=== PATIENT | female | born 1980 | race Two or more races ===

== ENCOUNTER 2017-06-13 04:57 | Emergency (ER) | payer BC ==
[2017-06-13] MEDS ORDERED: Alum Hydrox/Mag Hydrox/Simeth 15 ML, Metoclopramide 5 MG, Lidocaine 2% 5 ML PO ONE ×3 (05:07)
[2017-06-13] MEDS ORDERED: Pantoprazole 40 MG Vial IVPUSH ONE (05:16)
[2017-06-13] MEDS ORDERED: Ondansetron 4 MG/2 ML SDV IVPUSH ONE (05:16)
--- NOTE | 2017-06-13 05:26 | EDM.PDOC ---
ED HPI GENERAL MEDICAL PROBLEM - General Chief Complaint: Chest Pain Stated Complaint: CHEST PAINS Time Seen by Provider: 06/13/17 05:24 - History of Present Illness INITIAL COMMENTS - FREE TEXT/NARRATIVE: HISTORY AND PHYSICAL: History of present illness: Patient is a 36-year-old female who presents with a concern chest pain she states she is recently prescribed Voltaren for back pain she had no melena no hematochezia she's had some mild nausea on arrival here she denies diaphoresis or palpitations or other concern. Review of systems: As per history of present illness and below otherwise all systems reviewed and negative. Past medical history: As per history of present illness and as reviewed below otherwise noncontributory. Surgical history: As per history of present illness and as reviewed below otherwise noncontributory. Social history: No reported history of drug or alcohol abuse. Family history: As per history of present illness and as reviewed below otherwise noncontributory. Physical exam: HEENT: Atraumatic, normocephalic, pupils reactive, negative for conjunctival pallor or scleral icterus, mucous membranes moist, throat clear, neck supple, nontender, trachea midline. Lungs: Clear to auscultation, breath sounds equal bilaterally, chest nontender. Heart: S1S2, regular, negative for clicks, rubs, or JVD. Abdomen: Soft, nondistended, nontender. Negative for masses or hepatosplenomegaly. Negative for costovertebral tenderness. Pelvis: Stable nontender. Genitourinary: Deferred. Rectal: Deferred. Extremities: Atraumatic, negative for cords or calf pain. Neurovascular unremarkable. Neuro: Awake, alert, oriented. Cranial nerves II through XII unremarkable. Cerebellum unremarkable. Motor and sensory unremarkable throughout. Exam nonfocal. Diagnostics: CBC CMP troponin PT/INR chest x-ray EKG Therapeutics: GI cocktail Zofran 4 mg IV Protonix 80 mg IV Impression: #1 chest pain #2 rule out drug reaction Definitive disposition and diagnosis as appropriate pending reevaluation and review of above. 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: Musculoskeletal History: Reports: Back Pain, Chronic - Past Surgical History Female Surgical History: Reports: Section Social & Family History - Tobacco Use Smoking Status *Q: Former Smoker Used Tobacco, but Quit: Yes Month/Year Tobacco Last Used: 06/13 - Caffeine Use Caffeine Use: Reports: Coffee, Energy Drinks, Soda, Tea - Alcohol Use Days Per Week of Alcohol Use: 7 Number of Drinks Per Day: 5 Total Drinks Per Week: 35 - Recreational Drug Use Recreational Drug Use: Yes Drug Use in Last 12 Months: No ED ROS GENERAL - Review of Systems Review Of Systems: ROS reveals no pertinent complaints other than HPI. ED EXAM, GENERAL - Physical Exam Exam: See Below (dictation) Course - Vital Signs Last Recorded V/S: Last Vital Signs Temp Pulse 57 L 06/13/17 06:06 Resp 18 06/13/17 05:52 BP 116/72 06/13/17 06:06 Pulse Ox 96 06/13/17 05:52 - Orders/Labs/Meds Orders: Active Orders 24 hr Category Date Time Status Chest 1V Frontal [CR] Stat Exams 06/13/17 05:06 Taken Labs: Laboratory Tests 06/13/17 06/13/17 06/13/17 Range/Units 05:00 05:00 05:00 WBC 8.05 (4.0-11.0) K/uL RBC 4.88 (4.30-5.90) M/uL Hgb 12.6 (12.0-16.0) g/dL Hct 39.9 (36.0-46.0) % MCV 81.8 (80.0-98.0) fL MCH 25.8 L (27.0-32.0) pg MCHC 31.6 (31.0-37.0) g/dL RDW Std Deviation 45.3 (28.0-62.0) fl RDW Coeff of Huyen 15 (11.0-15.0) % Plt Count 307 (150-400) K/uL MPV 10.20 (7.40-12.00) fL Neut % (Auto) 56.5 (48.0-80.0) % Lymph % (Auto) 31.2 (16.0-40.0) % [place] % (Auto) 9.9 (0.0-15.0) % Eos % (Auto) 1.9 (0.0-7.0) % Baso % (Auto) 0.5 (0.0-1.5) % Neut # (Auto) 4.6 (1.4-5.7) K/uL Lymph # (Auto) 2.5 H (0.6-2.4) K/uL [place] # (Auto) 0.8 (0.0-0.8) K/uL Eos # (Auto) 0.2 (0.0-0.7) K/uL Baso # (Auto) 0.0 (0.0-0.1) K/uL Nucleated RBC % 0.0 /100WBC Nucleated RBCs # 0 K/uL INR 1.08 Sodium 140 (136-145) mmol/L Potassium 3.1 L (3.5-5.1) mmol/L Chloride 105 (98-107) mmol/L Carbon Dioxide 26.3 (21.0-32.0) mmol/L BUN 12 (7.0-18.0) mg/dL Creatinine 1.0 (0.6-1.0) mg/dL Est Cr Clr Drug Dosing 55.39 mL/min Estimated GFR (MDRD) > 60.0 ml/min Glucose 137 H (74-106) mg/dL Calcium 8.9 (8.5-10.1) mg/dL Total Bilirubin 0.2 (0.2-1.0) mg/dL AST 25 (15-37) IU/L ALT 24 (14-63) IU/L Alkaline Phosphatase 74 (46-116) U/L Troponin I < 0.050 (0.000-0.056) ng/mL Total Protein 7.5 (6.4-8.2) g/dL Albumin 3.8 (3.4-5.0) g/dL Globulin 3.7 H (2.0-3.5) g/dL Albumin/Globulin Ratio 1.0 L (1.3-2.8) Urine Color Urine Appearance Urine pH (5.0-8.0) Ur Specific [place] (1.001-1.035) Urine Protein (NEGATIVE) mg/dL Urine Glucose (UA) (NEGATIVE) mg/dL Urine Ketones (NEGATIVE) mg/dL Urine Occult Blood (NEGATIVE) Urine Nitrite (NEGATIVE) Urine Bilirubin (NEGATIVE) Urine Urobilinogen (<2.0) EU/dL Ur Leukocyte Esterase (NEGATIVE) Urine RBC (0-2/HPF) Urine WBC (0-5/HPF) Ur Epithelial Cells (NONE-FEW) Amorphous Sediment (NEGATIVE) Urine Bacteria (NEGATIVE) 06/13/17 Range/Units 06:10 WBC (4.0-11.0) K/uL RBC (4.30-5.90) M/uL Hgb (12.0-16.0) g/dL Hct (36.0-46.0) % MCV (80.0-98.0) fL MCH (27.0-32.0) pg MCHC (31.0-37.0) g/dL RDW Std Deviation (28.0-62.0) fl RDW Coeff of Huyen (11.0-15.0) % Plt Count (150-400) K/uL MPV (7.40-12.00) fL Neut % (Auto) (48.0-80.0) % Lymph % (Auto) (16.0-40.0) % [place] % (Auto) (0.0-15.0) % Eos % (Auto) (0.0-7.0) % Baso % (Auto) (0.0-1.5) % Neut # (Auto) (1.4-5.7) K/uL Lymph # (Auto) (0.6-2.4) K/uL [place] # (Auto) (0.0-0.8) K/uL Eos # (Auto) (0.0-0.7) K/uL Baso # (Auto) (0.0-0.1) K/uL Nucleated RBC % /100WBC Nucleated RBCs # K/uL INR Sodium (136-145) mmol/L Potassium (3.5-5.1) mmol/L Chloride (98-107) mmol/L Carbon Dioxide (21.0-32.0) mmol/L BUN (7.0-18.0) mg/dL Creatinine (0.6-1.0) mg/dL Est Cr Clr Drug Dosing mL/min Estimated GFR (MDRD) ml/min Glucose (74-106) mg/dL Calcium (8.5-10.1) mg/dL Total Bilirubin (0.2-1.0) mg/dL AST (15-37) IU/L ALT (14-63) IU/L Alkaline Phosphatase (46-116) U/L Troponin I (0.000-0.056) ng/mL Total Protein (6.4-8.2) g/dL Albumin (3.4-5.0) g/dL Globulin (2.0-3.5) g/dL Albumin/Globulin Ratio (1.3-2.8) Urine Color YELLOW Urine Appearance SLT CLOUDY Urine pH 8.5 H (5.0-8.0) Ur Specific [place] 1.010 (1.001-1.035) Urine Protein TRACE (NEGATIVE) mg/dL Urine Glucose (UA) NEGATIVE (NEGATIVE) mg/dL Urine Ketones NEGATIVE (NEGATIVE) mg/dL Urine Occult Blood NEGATIVE (NEGATIVE) Urine Nitrite NEGATIVE (NEGATIVE) Urine Bilirubin NEGATIVE (NEGATIVE) Urine Urobilinogen 1.0 (<2.0) EU/dL Ur Leukocyte Esterase NEGATIVE (NEGATIVE) Urine RBC 0-1 (0-2/HPF) Urine WBC 0-1 (0-5/HPF) Ur Epithelial Cells RARE (NONE-FEW) Amorphous Sediment MODERATE (NEGATIVE) Urine Bacteria RARE (NEGATIVE) Meds: Medications Discontinued Medications Generic Name Dose Route Start Last Admin Trade Name Freq PRN Reason Stop Dose Admin Al Hydroxide/Mg Hydroxide 15 0 ml 06/13/17 05:07 06/13/17 05:15 ml/ Metoclopramide HCl 5 mg/ PO 06/13/17 05:08 1 each Lidocaine HCl 5 ml ONETIME ONE Administration Ondansetron HCl 4 mg 06/13/17 05:16 06/13/17 05:20 Zofran IVPUSH 06/13/17 05:17 4 mg ONETIME ONE Administration Pantoprazole Sodium 80 mg 06/13/17 05:16 06/13/17 05:22 Protonix Iv IVPUSH 06/13/17 05:17 80 mg .BOLUS ONE Administration Departure - Departure Time of Disposition: 06:39 Disposition: Home, Self-Care 01 Condition: Good Clinical Impression: Atypical chest pain - Discharge Information Referrals: PCP,None [Primary Care Provider] - Forms: ED Department Discharge Additional Instructions: The following information is given to patients seen in the emergency department who are being discharged to home. This information is to outline your options for follow-up care. We provide all patients seen in our emergency department with a follow-up referral. The need for follow-up, as well as the timing and circumstances, are variable depending upon the specifics of your emergency department visit. If you don't have a primary care physician on staff, we will provide you with a referral. We always advise you to contact your personal physician following an emergency department visit to inform them of the circumstance of the visit and for follow-up with them and/or the need for any referrals to a consulting specialist. The emergency department will also refer you to a specialist when appropriate. This referral assures that you have the opportunity for followup care with a specialist. All of these measure are taken in an effort to provide you with optimal care, which includes your followup. Under all circumstances we always encourage you to contact your private physician who remains a resource for coordinating your care. When calling for followup care, please make the office aware that this follow-up is from your recent emergency room visit. If for any reason you are refused follow-up, please contact the [facility] emergency department at and asked to speak to the emergency department charge nurse. Stop diclofenac Protonix as prescribed follow-up primary medical doctor return as needed as discussed - My Orders Last 24 Hours: My Active Orders 06/13/17 05:06 Chest 1V Frontal [CR] Stat - Assessment/Plan Last 24 Hours: My Active Orders 06/13/17 05:06 Chest 1V Frontal [CR] Stat
[2017-06-13 05:58] LABS: CHLORIDE,CL 105 mmol/L (98-107); SODIUM,NA 140 mmol/L (136-145)
--- NOTE | 2017-06-14 16:32 | CR ---
EXAM DATE: 06/13/17 PATIENT'S AGE: 36 Patient: CARMEN HYMAN Facility: [place], [place] Site . Site : [id number] Study: XRay Chest [id number]/[id number] 6:01:54 AM Ordering Physician: Doctor Hanson Final Report: Indication: Sudden onset chest pain Technique: Chest 1 view Comparison: None Findings/Impression: Cardiovascular and mediastinum: Heart size and vasculature are normal in caliber and appearance. Mediastinum is within normal limits. Lungs and pleural space: Lungs are clear. No sign of infiltrate or mass. No sign of pleural effusion. No pneumothorax. Bones and soft tissues: No significant findings. Dictated by Laney Tillman MD @ Jun 13 2017 6:29AM (Electronic Signature) Report Signed by Proxy. EDVIN
== END 2017-06-13 06:50 | disposition home or self-care (01) ==
LOC: MW.ED 04:57
DX: R07.89 Other chest pain (principal); J45.909 Unspecified asthma, uncomplicated; Z87.891 Personal history of nicotine dependence; Z79.899 Other long term (current) drug therapy
CPT/HCPCS: 71045; 80053; 81001; 84484; 85025; 85610; 93005; 96374; 96375; 99285; A9270; C9113; J2405; 99283

== ENCOUNTER 2017-06-29 09:44 | Emergency (ER) | payer BC ==
[2017-06-29] MEDS ORDERED: Sodium Chloride 0.9% 10 ML Syringe FLUSH PRN (09:46)
[2017-06-29] MEDS ORDERED: Sodium Chloride 0.9% 2.5 ML Syringe FLUSH PRN (09:46)
--- NOTE | 2017-06-29 09:49 | EDM.PDOC ---
ED HPI GENERAL MEDICAL PROBLEM - General Stated Complaint: CHEST AND BACK PAIN Time Seen by Provider: 06/29/17 09:48 Source of Information: Reports: Patient History Limitations: Reports: No Limitations - History of Present Illness INITIAL COMMENTS - FREE TEXT/NARRATIVE: History of present illness: []Patient wakes up at 3 in the morning for work and awoke with epigastric pain radiating to her chest. Patient was seen for similar episode in the ED and has been worked up by her primary care doctor with no diagnosis. Patient drinks alcohol and not drink any alcohol for 3 days and felt well however last night she did drink. Patient was put on Protonix however she is noncompliant. She denies having any bloody stools vomiting or diarrhea. Review of systems: As per history of present illness and below otherwise all systems reviewed and negative. Past medical history: As per history of present illness and as reviewed below otherwise noncontributory. Surgical history: As per history of present illness and as reviewed below otherwise noncontributory. Social history: No reported history of drug or alcohol abuse. Family history: As per history of present illness and as reviewed below otherwise noncontributory. Physical exam: General: Well developed, well nourished in NAD HEENT: Atraumatic, normocephalic, pupils reactive, negative for conjunctival pallor or scleral icterus, mucous membranes moist, throat clear, neck supple, nontender, trachea midline. Lungs: Clear to auscultation, breath sounds equal bilaterally, chest nontender. Heart: S1S2, regular, negative for clicks, rubs, or JVD. Abdomen: Soft, nondistended, epigastric tenderness to deep palpation. Negative for masses or hepatosplenomegaly. Negative for costovertebral tenderness. Pelvis: Stable nontender. Genitourinary: Deferred. Rectal: Deferred. Extremities: Atraumatic, negative for cords or calf pain. Neurovascular unremarkable. Neuro: Awake, alert, oriented. Cranial nerves II through XII unremarkable. Cerebellum unremarkable. Motor and sensory unremarkable throughout. Exam nonfocal. Diagnostics: []CBC normal, chemistry normal, d-dimer negative, troponin negative, chest x- ray negative Therapeutics: []GI cocktail with minimal relief, IV Pepcid with relief Impression: []GERD Plan: []Continue current prescription for Protonix until gone or start over-the- counter omeprazole twice a day, follow-up with a primary care physician, to not drink anymore alcohol, try to limit use of NSAIDs and if taken take with food return if symptoms worsen or change Definitive disposition and diagnosis as appropriate pending reevaluation and review of above. chest Pain Score (Numeric/FACES): 5 - Related Data Allergies Allergy/AdvReac Type Severity Reaction Status Date / Time No Known Allergies Allergy Verified 06/29/17 10:03 Home Meds: Home Meds . 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: Musculoskeletal History: Reports: Back Pain, Chronic - Past Surgical History Female Surgical History: Reports: Section Social & Family History - Tobacco Use Smoking Status *Q: Former Smoker Used Tobacco, but Quit: Yes Month/Year Tobacco Last Used: 06/13 - Caffeine Use Caffeine Use: Reports: Coffee, Energy Drinks, Soda, Tea - Alcohol Use Days Per Week of Alcohol Use: 7 Number of Drinks Per Day: 5 Total Drinks Per Week: 35 - Recreational Drug Use Recreational Drug Use: Yes Drug Use in Last 12 Months: No ED ROS GENERAL - Review of Systems Review Of Systems: See Below (See history of present illness) ED EXAM, GENERAL - Physical Exam Exam: See Below (See history of present illness) Course - Vital Signs Last Recorded V/S: Last Vital Signs Temp 96.9 F 06/29/17 09:45 Pulse 69 06/29/17 11:09 Resp 18 06/29/17 11:09 BP 104/62 06/29/17 11:09 Pulse Ox 98 06/29/17 11:09 - Orders/Labs/Meds Orders: Active Orders 24 hr Category Date Time Status EKG Documentation Completion [RC] STAT Care 06/29/17 09:46 Active HCG QUALITATIVE,URINE [URCHEM] Stat Lab 06/29/17 10:30 Ordered UA W/MICROSCOPIC [URIN] Stat Lab 06/29/17 10:30 Ordered Sodium Chloride 0.9% [Saline Flush] Med 06/29/17 09:46 Active 10 ml FLUSH ASDIRECTED PRN Sodium Chloride 0.9% [Saline Flush] Med 06/29/17 09:46 Active 2.5 ml FLUSH ASDIRECTED PRN Saline Lock Insert [OM.PC] Stat Oth 06/29/17 09:46 Ordered Medication Orders Sodium Chloride (Saline Flush) 10 ml FLUSH ASDIRECTED PRN PRN Reason: Keep Vein Open Last Admin: 06/29/17 10:13 Dose: 10 ml Sodium Chloride (Saline Flush) 2.5 ml FLUSH ASDIRECTED PRN PRN Reason: Keep Vein Open Last Admin: 06/29/17 10:14 Dose: 2.5 ml Labs: Laboratory Tests 06/29/17 06/29/17 06/29/17 Range/Units 09:50 09:50 09:50 WBC 8.23 (4.0-11.0) K/uL RBC 4.69 (4.30-5.90) M/uL Hgb 11.9 L (12.0-16.0) g/dL Hct 37.5 (36.0-46.0) % MCV 80.0 (80.0-98.0) fL MCH 25.4 L (27.0-32.0) pg MCHC 31.7 (31.0-37.0) g/dL RDW Std Deviation 43.1 (28.0-62.0) fl RDW Coeff of Huyen 15 (11.0-15.0) % Plt Count 281 (150-400) K/uL MPV 10.10 (7.40-12.00) fL Neut % (Auto) 70.4 (48.0-80.0) % Lymph % (Auto) 21.5 (16.0-40.0) % Sac % (Auto) 6.8 (0.0-15.0) % Eos % (Auto) 1.1 (0.0-7.0) % Baso % (Auto) 0.2 (0.0-1.5) % Neut # (Auto) 5.8 H (1.4-5.7) K/uL Lymph # (Auto) 1.8 (0.6-2.4) K/uL Sac # (Auto) 0.6 (0.0-0.8) K/uL Eos # (Auto) 0.1 (0.0-0.7) K/uL Baso # (Auto) 0.0 (0.0-0.1) K/uL Nucleated RBC % 0.0 /100WBC Nucleated RBCs # 0 K/uL INR 1.08 D-Dimer, Quantitative < 0.19 (0.0-0.52) mg/LFEU Sodium 140 (136-145) mmol/L Potassium 4.0 (3.5-5.1) mmol/L Chloride 108 H (98-107) mmol/L Carbon Dioxide 24.6 (21.0-32.0) mmol/L BUN 10 (7.0-18.0) mg/dL Creatinine 0.7 (0.6-1.0) mg/dL Est Cr Clr Drug Dosing 94.10 mL/min Estimated GFR (MDRD) > 60.0 ml/min Glucose 96 (74-106) mg/dL Calcium 8.4 L (8.5-10.1) mg/dL Total Bilirubin 0.3 (0.2-1.0) mg/dL AST 24 (15-37) IU/L ALT 26 (14-63) IU/L Alkaline Phosphatase 72 (46-116) U/L Troponin I < 0.050 (0.000-0.056) ng/mL Total Protein 7.1 (6.4-8.2) g/dL Albumin 3.4 (3.4-5.0) g/dL Globulin 3.7 H (2.0-3.5) g/dL Albumin/Globulin Ratio 0.9 L (1.3-2.8) Urine Color Urine Appearance Urine pH (5.0-8.0) Ur Specific [place] (1.001-1.035) Urine Protein (NEGATIVE) mg/dL Urine Glucose (UA) (NEGATIVE) mg/dL Urine Ketones (NEGATIVE) mg/dL Urine Occult Blood (NEGATIVE) Urine Nitrite (NEGATIVE) Urine Bilirubin (NEGATIVE) Urine Urobilinogen (<2.0) EU/dL Ur Leukocyte Esterase (NEGATIVE) Urine RBC (0-2/HPF) Urine WBC (0-5/HPF) Ur Epithelial Cells (NONE-FEW) Amorphous Sediment (NEGATIVE) Urine Bacteria (NEGATIVE) Urine HCG, Qual (NEGATIVE) 06/29/17 06/29/17 Range/Units 10:30 10:30 WBC (4.0-11.0) K/uL RBC (4.30-5.90) M/uL Hgb (12.0-16.0) g/dL Hct (36.0-46.0) % MCV (80.0-98.0) fL MCH (27.0-32.0) pg MCHC (31.0-37.0) g/dL RDW Std Deviation (28.0-62.0) fl RDW Coeff of Huy[place] (11.0-15.0) % Plt Count (150-400) K/uL MPV (7.40-12.00) fL Neut % (Auto) (48.0-80.0) % Lymph % (Auto) (16.0-40.0) % Sac % (Auto) (0.0-15.0) % Eos % (Auto) (0.0-7.0) % Baso % (Auto) (0.0-1.5) % Neut # (Auto) (1.4-5.7) K/uL Lymph # (Auto) (0.6-2.4) K/uL Sac # (Auto) (0.0-0.8) K/uL Eos # (Auto) (0.0-0.7) K/uL Baso # (Auto) (0.0-0.1) K/uL Nucleated RBC % /100WBC Nucleated RBCs # K/uL INR D-Dimer, Quantitative (0.0-0.52) mg/LFEU Sodium (136-145) mmol/L Potassium (3.5-5.1) mmol/L Chloride (98-107) mmol/L Carbon Dioxide (21.0-32.0) mmol/L BUN (7.0-18.0) mg/dL Creatinine (0.6-1.0) mg/dL Est Cr Clr Drug Dosing mL/min Estimated GFR (MDRD) ml/min Glucose (74-106) mg/dL Calcium (8.5-10.1) mg/dL Total Bilirubin (0.2-1.0) mg/dL AST (15-37) IU/L ALT (14-63) IU/L Alkaline Phosphatase (46-116) U/L Troponin I (0.000-0.056) ng/mL Total Protein (6.4-8.2) g/dL Albumin (3.4-5.0) g/dL Globulin (2.0-3.5) g/dL Albumin/Globulin Ratio (1.3-2.8) Urine Color YELLOW Urine Appearance CLEAR Urine pH 6.0 (5.0-8.0) Ur Specific [place] 1.025 (1.001-1.035) Urine Protein NEGATIVE (NEGATIVE) mg/dL Urine Glucose (UA) NEGATIVE (NEGATIVE) mg/dL Urine Ketones NEGATIVE (NEGATIVE) mg/dL Urine Occult Blood NEGATIVE (NEGATIVE) Urine Nitrite NEGATIVE (NEGATIVE) Urine Bilirubin NEGATIVE (NEGATIVE) Urine Urobilinogen 0.2 (<2.0) EU/dL Ur Leukocyte Esterase NEGATIVE (NEGATIVE) Urine RBC 0-1 (0-2/HPF) Urine WBC 0-2 (0-5/HPF) Ur Epithelial Cells MODERATE (NONE-FEW) Amorphous Sediment FEW (NEGATIVE) Urine Bacteria FEW (NEGATIVE) Urine HCG, Qual NEGATIVE (NEGATIVE) Meds: Medications Generic Name Dose Route Start Last Admin Trade Name Freq PRN Reason Stop Dose Admin Sodium Chloride 10 ml 06/29/17 09:46 06/29/17 10:13 Saline Flush FLUSH 10 ml ASDIRECTED PRN Administration Keep Vein Open Sodium Chloride 2.5 ml 06/29/17 09:46 06/29/17 10:14 Saline Flush FLUSH 2.5 ml ASDIRECTED PRN Administration Keep Vein Open Discontinued Medications Generic Name Dose Route Start Last Admin Trade Name Freq PRN Reason Stop Dose Admin Al Hydroxide/Mg Hydroxide 15 0 ml 06/29/17 10:03 06/29/17 10:12 ml/ Lidocaine HCl 5 ml PO 06/29/17 10:04 1 each ONETIME ONE Administration Famotidine 20 mg 06/29/17 10:50 06/29/17 11:07 Pepcid IVPUSH 06/29/17 10:51 20 mg ONETIME ONE Administration Departure - Departure Time of Disposition: 11:17 Disposition: Home, Self-Care 01 Condition: Good Clinical Impression: GERD (gastroesophageal reflux disease) Referrals: PCP,None [Primary Care Provider] - Additional Instructions: The following information is given to patients seen in the emergency department who are being discharged to home. This information is to outline your options for follow-up care. We provide all patients seen in our emergency department with a follow-up referral. The need for follow-up, as well as the timing and circumstances, are variable depending upon the specifics of your emergency department visit. If you don't have a primary care physician on staff, we will provide you with a referral. We always advise you to contact your personal physician following an emergency department visit to inform them of the circumstance of the visit and for follow-up with them and/or the need for any referrals to a consulting specialist. The emergency department will also refer you to a specialist when appropriate. This referral assures that you have the opportunity for follow-up care with a specialist. All of these measure are taken in an effort to provide you with optimal care, which includes your follow-up. Under all circumstances we always encourage you to contact your private physician who remains a resource for coordinating your care. When calling for follow-up care, please make the office aware that this follow-up is from your recent emergency room visit. If for any reason you are refused follow-up, please contact the [facility] Emergency Department at and asked to speak to the emergency department charge nurse. Stop alcohol use decrease NSAID use. Take Prilosec 2 times a day follow-up with your primary care physician return if symptoms worsen or change - My Orders Last 24 Hours: My Active Orders 06/29/17 09:46 EKG Documentation Completion [RC] STAT Sodium Chloride 0.9% [Saline Flush] 10 ml FLUSH ASDIRECTED PRN Sodium Chloride 0.9% [Saline Flush] 2.5 ml FLUSH ASDIRECTED PRN Saline Lock Insert [OM.PC] Stat 06/29/17 10:30 HCG QUALITATIVE,URINE [URCHEM] Stat UA W/MICROSCOPIC [URIN] Stat - Assessment/Plan Last 24 Hours: My Active Orders 06/29/17 09:46 EKG Documentation Completion [RC] STAT Sodium Chloride 0.9% [Saline Flush] 10 ml FLUSH ASDIRECTED PRN Sodium Chloride 0.9% [Saline Flush] 2.5 ml FLUSH ASDIRECTED PRN Saline Lock Insert [OM.PC] Stat 06/29/17 10:30 HCG QUALITATIVE,URINE [URCHEM] Stat UA W/MICROSCOPIC [URIN] Stat
[2017-06-29] MEDS ORDERED: Alum Hydrox/Mag Hydrox/Simeth 15 ML, Lidocaine 2% 5 ML PO ONE ×2 (10:03)
[2017-06-29 10:38] LABS: CHLORIDE,CL 108 mmol/L (98-107); SODIUM,NA 140 mmol/L (136-145)
[2017-06-29] MEDS ORDERED: Famotidine 20 MG/2 ML SDV IVPUSH ONE (10:50)
--- NOTE | 2017-06-29 11:11 | CR ---
EXAMINATION: Portable chest radiograph. HISTORY: Chest pain. FINDINGS: The trachea is midline. The cardiomediastinal silhouette is within normal limits. No pulmonary infilt rates, effusions or pneumothorax. Osseous structures appear unremarkable. IMPRESSION: No acute cardiopulmonary process.
== END 2017-06-29 12:35 | disposition home or self-care (01) ==
LOC: MW.ED 09:44
DX: K21.9 Gastro-esophageal reflux disease without esophagitis (principal); J45.909 Unspecified asthma, uncomplicated; Z87.891 Personal history of nicotine dependence
CPT/HCPCS: 36415; 71045; 80053; 81001; 81025; 84484; 85025; 85379; 85610; 93005; 96374; 99285; A9270; 99283

== ENCOUNTER 2017-08-12 11:48 | Day surgery (SDC) | payer BC ==
[~2017-08-12 11:48] MED LIST: Lactated Ringers 1,000 ML IV SCH; Sodium Chloride 0.9% 10 ML Syringe FLUSH PRN; Sodium Chloride 0.9% 2.5 ML Syringe FLUSH PRN
--- NOTE | 2017-08-12 12:30 | PCM.PREANE ---
Preanesthetic Assessment - Anesthesia/Transfusion/Family Hx Anesthesia History: No Prior Anesthesia Other Type of Anesthesia Reaction Comment: "hard to wake" Family History of Anesthesia Reaction: No Transfusion History: Unknown - Review of Systems General: No Symptoms Pulmonary: No Symptoms Cardiovascular: No Symptoms Gastrointestinal: No Symptoms Neurological: No Symptoms Other: Reports: None - Physical Assessment Height: 1.63 m Weight: 67.132 kg ASA Class: 2 Mental Status: Alert & Oriented x3 Dentition: Reports: Normal Dentition ROM/Head Extension: Full Lungs: Clear to Auscultation, Normal Respiratory Effort Cardiovascular: Regular Rate, Regular Rhythm - Lab Values: Laboratory Last Values Urine HCG, Qual NEGATIVE (NEGATIVE) 08/12/17 11:51 - Allergies Allergies/Adverse Reactions: Allergies Allergy/AdvReac Type Severity Reaction Status Date / Time No Known Allergies Allergy Verified 08/09/17 08:50 - Anesthesia Plan Pre-Op Medication Ordered: None - Acknowledgements Anesthesia Type Planned: MAC Pt an Appropriate Candidate for the Planned Anesthesia: Yes Alternatives and Risks of Anesthesia Discussed w Pt/Guardian: Yes Pt/Guardian Understands and Agrees with Anesthesia Plan: Yes PreAnesthesia Questionnaire HEENT History: Reports: Other (See Below) Other HEENT History: wears glasses Cardiovascular History: Reports: Heart Murmur Respiratory History: Reports: Asthma Other Respiratory History: "asthma comes in the form of heartburn" Gastrointestinal History: Reports: GERD Genitourinary History: Reports: None [employer] History: Reports: Musculoskeletal History: Reports: Arthritis, Back Pain, Chronic Neurological History: Reports: Concussion, Migraines Other Neuro History: "migraines due to not enough caffeine" Psychiatric History: Reports: Anxiety Endocrine/Metabolic History: Reports: None Hematologic History: Reports: Blood Transfusion(s) Immunologic History: Reports: None Oncologic (Cancer) History: Reports: None Dermatologic History: Reports: None - Past Surgical History Head Surgeries/Procedures: Reports: None Female Surgical History: Reports: Section - SUBSTANCE USE Smoking Status *Q: Former Smoker Tobacco Use Within Last Twelve Months: Cigarettes Days Per Week of Alcohol Use: 3 Number of Drinks Per Day: 5 Total Drinks Per Week: 15 Recreational Drug Use History: Yes - HOME MEDS Home Medications: Home Meds Multivitamin [Multivitamins] 1 tab PO DAILY 08/09/17 [History] Pantoprazole Sodium 40 mg PO DAILY 08/09/17 [History] busPIRone HCl [Buspirone HCl] 5 mg PO BID 08/09/17 [History] - CURRENT (IN HOUSE) MEDS Current Meds: Current Medications Lactated Ringer's (Ringers, Lactated) 1,000 mls @ 125 mls/hr IV ASDIRECTED CISCO Last Admin: 08/12/17 12:22 Dose: 125 mls/hr Sodium Chloride (Saline Flush) 10 ml FLUSH ASDIRECTED PRN PRN Reason: Keep Vein Open Sodium Chloride (Saline Flush) 2.5 ml FLUSH ASDIRECTED PRN PRN Reason: Keep Vein Open
[2017-08-12] MEDS ORDERED: Propofol 200 MG/20 ML SDV ONE (12:33)
[2017-08-12] MEDS ORDERED: Lidocaine 2% 5 ML SDV ONE (12:33)
[2017-08-12] MEDS ORDERED: Midazolam 1 MG/ML 2 ML SDV ONE (12:34)
--- NOTE | 2017-08-12 12:51 | PCM.OPNOTE ---
- General Post-Op/Procedure Note Date of Surgery/Procedure: 08/12/17 Operative Procedure(s): Diagnostic EGD Findings: Normal EGD Pre Op Diagnosis: Epigastric pain Post-Op Diagnosis: same Anesthesia Technique: MAC Primary Surgeon: Vicenta Beckford Condition: Good
--- NOTE | 2017-08-12 13:19 | PCM.POSTAN ---
POST ANESTHESIA ASSESSMENT - MENTAL STATUS Mental Status: Alert, Oriented - RESPIRATORY Respiratory Status: Respiratory Rate WNL, Airway Patent, O2 Saturation Stable - CARDIOVASCULAR CV Status: Pulse Rate WNL, Blood Pressure Stable - GASTROINTESTINAL GI Status: No Symptoms - POST OP HYDRATION Hydration Status: Adequate & Stable
--- NOTE | 2017-08-12 13:19 | PCM48HPAN ---
Post Anesthesia Note - EVALUATION WITHIN 48HRS OF ANESTHETIC Vital Signs in Normal Range: Yes Patient Participated in Evaluation: Yes Respiratory Function Stable: Yes Airway Patent: Yes Cardiovascular Function Stable: Yes Hydration Status Stable: Yes Pain Control Satisfactory: Yes Nausea and Vomiting Control Satisfactory: Yes Mental Status Recovered: Yes Resp Rate: 19
--- NOTE | 2017-08-12 13:30 | OR ---
SURGEON: VICENTA BECKFORD MD DATE OF PROCEDURE: 08/12/2017 PREOPERATIVE DIAGNOSIS: Epigastric pain. POSTOPERATIVE DIAGNOSIS: Epigastric pain. PROCEDURE PERFORMED: Diagnostic EGD. ENDOSCOPIST: Vicenta Beckford MD. ANESTHESIA: MAC. INSTRUMENT USED: Olympus endoscope. EXTENT OF EXAM: To the second portion of duodenum. PREPARATION: Good. LIMITATIONS: None. INDICATION FOR EXAMINATION: The patient is a 36-year-old female, who presented to the emergency room with severe epigastric and upper abdominal pain. She was given a GI cocktail, which relieved her symptoms. Further workup with me revealed that she has biliary dyskinesia. The patient and I discussed performing a diagnostic EGD prior to taking out her gallbladder to rule out any peptic ulcer disease or gastritis. We discussed the diagnostic EGD procedure, as well as expected perioperative course. We discussed the risks including bleeding or perforation. The patient verbalized understanding and wishes to proceed. PROCEDURE IN DETAIL: The patient was brought to the endoscopy suite and placed in a beach chair position. A time-out was completed verifying the patient's name, age, date of , allergies, and procedure to be performed. Monitored anesthesia care was induced and a bite block was placed in the patient's mouth. Continuous oxygen was provided via nasal cannula throughout the procedure. After adequate sedation was achieved, a well lubricated endoscope was placed in the patient's mouth and advanced under direct visualization to the second portion of duodenum. This appeared normal and a photograph was taken. The scope was then fully withdrawn while examining the color, texture, anatomy, and integrity mucosa of the upper GI tract. There was no evidence of any ulcers within the duodenum. The duodenal mucosa appeared normal. The scope was brought into the stomach and a photograph was taken of the pylorus and GE junction, which looked normal. The gastric mucosa was free of pathology and there was no evidence of inflammation. Biopsies were taken of the gastric antrum, body, and fundus and sent for histologic review. The scope was brought into the distal esophagus and a photograph taken of the GE junction, which appeared normal. The remainder of the esophageal mucosa was free of pathology. The scope was then removed and the procedure terminated. The patient tolerated the procedure well and was taken to the PACU in stable condition. ENDOSCOPIC DIAGNOSIS: Normal EGD. RECOMMENDATIONS: The patient can stop pantoprazole if she feels this is not helping her symptoms. If she does feel some symptomatic relief, she can continue to take medication. The patient was supposed to have a fecal occult blood test performed due to chronic constipation; however, has not done so. In the outpatient setting, she will bring in a stool sample for followup. We will plan on a laparoscopic cholecystectomy next week. KATHY OCONNOR /[id number]
== END 2017-08-12 13:40 | disposition home or self-care (01) ==
LOC: MW.SDS 11:48
PROVIDERS: ATTEND Surgery
DX: K29.50 Unspecified chronic gastritis without bleeding (principal); K82.8 Other specified diseases of gallbladder; K21.9 Gastro-esophageal reflux disease without esophagitis; J45.909 Unspecified asthma, uncomplicated; M19.90 Unspecified osteoarthritis, unspecified site; G43.909 Migraine, unspecified, not intractable, without status migrainosus; G89.29 Other chronic pain; M54.9 Dorsalgia, unspecified; F41.9 Anxiety disorder, unspecified; Z79.899 Other long term (current) drug therapy; Z98.890 Other specified postprocedural states; Z87.891 Personal history of nicotine dependence
CPT/HCPCS: 81025; J2250; J2704; J7120

== ENCOUNTER 2017-08-19 07:14 | Day surgery (SDC) | payer BC ==
[~2017-08-19 07:14] MED LIST changes: +ceFAZolin 2 GM in Premix Bag 1 BAG IV ONE
[2017-08-19] MEDS ORDERED: Bupivacaine 0.5% 30 ML SDV ONE ×2 (07:31→07:51)
[2017-08-19] MEDS ORDERED: Scopolamine 1.5 MG Transdermal Patch TRDERM PRN (07:38)
--- NOTE | 2017-08-19 07:40 | PCM.PREANE ---
Preanesthetic Assessment - Anesthesia/Transfusion/Family Hx Anesthesia History: No Prior Anesthesia Other Type of Anesthesia Reaction Comment: "takes me along time to wake up" Family History of Anesthesia Reaction: No Transfusion History: Prior Transfusion Without Reaction Intubation History: Unknown - Review of Systems General: No Symptoms Pulmonary: No Symptoms Cardiovascular: No Symptoms Gastrointestinal: Abdominal Pain Neurological: No Symptoms Other: Reports: None - Physical Assessment Height: 1.63 m Weight: 67.132 kg ASA Class: 2 Mental Status: Alert & Oriented x3 Airway Class: Mallampati = 1 Dentition: Reports: Normal Dentition, Broken Tooth/Teeth (lower front x1) Thyro-Mental Finger Breadths: 3 Mouth Opening Finger Breadths: 3 ROM/Head Extension: Full Lungs: Clear to Auscultation, Normal Respiratory Effort Cardiovascular: Regular Rate, Regular Rhythm - Allergies Allergies/Adverse Reactions: Allergies Allergy/AdvReac Type Severity Reaction Status Date / Time No Known Allergies Allergy Verified 08/17/17 06:55 - Blood Blood Available: No - Anesthesia Plan Pre-Op Medication Ordered: None - Acknowledgements Anesthesia Type Planned: General Anesthesia Pt an Appropriate Candidate for the Planned Anesthesia: Yes Alternatives and Risks of Anesthesia Discussed w Pt/Guardian: Yes Pt/Guardian Understands and Agrees with Anesthesia Plan: Yes PreAnesthesia Questionnaire HEENT History: Reports: Other (See Below) Other HEENT History: wears glasses Cardiovascular History: Reports: Heart Murmur Respiratory History: Reports: Asthma, Other (See Below) Other Respiratory History: states "asthma comes in the form of heartburn" Gastrointestinal History: Reports: GERD Genitourinary History: Reports: None [employer] History: Reports: Musculoskeletal History: Reports: Back Pain, Chronic Neurological History: Reports: Concussion, Migraines Other Neuro History: states migraines if no caffeine Psychiatric History: Reports: Anxiety Endocrine/Metabolic History: Reports: None Hematologic History: Reports: Blood Transfusion(s) Immunologic History: Reports: None Oncologic (Cancer) History: Reports: None Dermatologic History: Reports: None - Past Surgical History Head Surgeries/Procedures: Reports: None GI Surgical History: Reports: EGD Female Surgical History: Reports: Section, Tubal Ligation - SUBSTANCE USE Smoking Status *Q: Former Smoker (quit 3-4 months ago) Tobacco Use Within Last Twelve Months: Cigarettes Days Per Week of Alcohol Use: 7 Number of Drinks Per Day: 5 Total Drinks Per Week: 35 Recreational Drug Use History: Yes - HOME MEDS Home Medications: Home Meds Multivitamin [Multivitamins] 1 tab PO DAILY 08/09/17 [History] busPIRone HCl [Buspirone HCl] 5 mg PO BID 08/09/17 [History] Diclofenac Sodium [Voltaren] 75 mg PO ASDIRECTED PRN 08/17/17 [History] - CURRENT (IN HOUSE) MEDS Current Meds: Current Medications Lactated Ringer's (Ringers, Lactated) 1,000 mls @ 125 mls/hr IV ASDIRECTED CISCO Last Admin: 08/19/17 07:21 Dose: 125 mls/hr Sodium Chloride (Saline Flush) 10 ml FLUSH ASDIRECTED PRN PRN Reason: Keep Vein Open Sodium Chloride (Saline Flush) 2.5 ml FLUSH ASDIRECTED PRN PRN Reason: Keep Vein Open Discontinued Medications Bupivacaine HCl (Marcaine 0.5%) Confirm Administered Dose 30 ml .ROUTE .STK-MED ONE Stop: 08/19/17 07:32 Cefazolin Sodium/Dextrose 2 gm (/ Premix) 50 mls @ 100 mls/hr IV ONETIME ONE Stop: 08/16/17 08:26
[2017-08-19] MEDS ORDERED: Lidocaine 2% 5 ML SDV ONE (07:43)
[2017-08-19] MEDS ORDERED: Rocuronium 10 MG/ML 10 ML Syringe ONE (07:43)
[2017-08-19] MEDS ORDERED: fentaNYL 100 MCG/2 ML SDV ONE (07:43)
[2017-08-19] MEDS ORDERED: Midazolam 1 MG/ML 2 ML SDV ONE (07:43)
[2017-08-19] MEDS ORDERED: Propofol 200 MG/20 ML SDV ONE (07:43)
[2017-08-19] MEDS ORDERED: Scopolamine 1.5 MG Transdermal Patch ONE (07:54)
[2017-08-19] MEDS ORDERED: Dexamethasone 4 MG/ML 5 ML MDV ONE (08:25)
[2017-08-19] MEDS ORDERED: Neostigmine Methylsulfate 1 MG/ML 5 ML Syringe ONE (08:41)
[2017-08-19] MEDS ORDERED: Ondansetron 4 MG/2 ML SDV ONE (08:41)
[2017-08-19] MEDS ORDERED: Glycopyrrolate 0.2 MG/ML SDV ONE (08:41)
[2017-08-19] MEDS ORDERED: Morphine 10 MG/ML Syringe ONE (08:42)
--- NOTE | 2017-08-19 09:32 | PCM.OPNOTE ---
- General Post-Op/Procedure Note Date of Surgery/Procedure: 08/19/17 Operative Procedure(s): Laparoscopic cholecystectomy Findings: Normal appearing gallbladder. Minimal adhesions to surrounding omentum Pre Op Diagnosis: Biliary dyskinesia Post-Op Diagnosis: same Anesthesia Technique: General ET Tube Primary Surgeon: Vicenta Beckford Fluid Replacement, Intraop: 1,200 Output, Urine Amount: 35 EBL in mLs: 10 Condition: Good
[2017-08-19] MEDS ORDERED: Acetaminophen/oxyCODONE 325-5 MG Tab PO PRN (09:34)
[2017-08-19] MEDS: fentaNYL 100 MCG/2 ML SDV IVPUSH PRN ×3 (09:52→10:13)
--- NOTE | 2017-08-19 10:42 | PCM.POSTAN ---
POST ANESTHESIA ASSESSMENT - MENTAL STATUS Mental Status: Alert, Oriented - RESPIRATORY Respiratory Status: Respiratory Rate WNL, Airway Patent, O2 Saturation Stable - CARDIOVASCULAR CV Status: Pulse Rate WNL - GASTROINTESTINAL GI Status: No Symptoms - PAIN Pain Score: 6 - POST OP HYDRATION Hydration Status: Adequate & Stable - OBSERVATIONS Free Text/Narrative:: no anesthesia problems
[2017-08-19] MEDS ORDERED: Acetaminophen 1,000 MG in Premix Bag 1 BAG IV PRN (11:35)
--- NOTE | 2017-08-19 12:32 | OR ---
SURGEON: PAUL FARFAN MD DATE OF PROCEDURE: 08/19/2017 PREOPERATIVE DIAGNOSIS: Biliary dyskinesia. POSTOPERATIVE DIAGNOSIS: Biliary dyskinesia. PROCEDURE PERFORMED: Laparoscopic cholecystectomy. ANESTHESIA: General endotracheal anesthesia. FLUIDS: 1200 mL of crystalloid. ESTIMATED BLOOD LOSS: 10 mL. URINE OUTPUT: 35 mL. FINDINGS: Normal-appearing gallbladder with minimal adhesions to the surrounding omentum. COMPLICATIONS: None. INDICATIONS: The patient is a 37-year-old female, who presented with postprandial abdominal pain. An EGD was performed that showed no evidence of gastritis or peptic ulcer disease. A HIDA scan was performed that showed a gallbladder ejection fraction of 32%. Diagnosis of biliary dyskinesia was made. We discussed the treatment for this, which is cholecystectomy. We discussed the open and laparoscopic procedures. I will attempt this laparoscopically; however, should I be unable to complete it safely in this manner, I will convert to open. The patient and I discussed the procedure, expected perioperative course, and risks including bleeding, infection, or damage to surrounding structures. The patient verbalized understanding and wishes to proceed. PROCEDURE IN DETAIL: The patient was brought into the OR and placed on the OR table in supine position. A time-out was completed verifying the patient's name, age, date of , allergies, and procedure to be performed. General endotracheal anesthesia was induced. The left arm was tucked at the patient's side and a Dunbar catheter was placed. The abdomen was prepped and draped in usual standard fashion. The patient had a very small abdominal domain. Because of this, I had to place my initial trocar incision approximately 1 cm below the umbilicus along the lower midline. I first anesthetized the area with 0.5% Marcaine plain. An 11 blade was used to make a 2 cm incision along the previously stated area. Cautery was used to dissect down to the level of subcutaneous fat. S retractors were used to dissect down to the level of the fascia. The fascia was elevated with Sulma's and incised sharply with the Evans scissors. The peritoneum was identified. This was elevated with hemostats and sharply incised with the Metzenbaum scissors. Entry into the abdomen was palpated. A 12 mm Krissy trocar was placed in the abdomen and the abdomen was insufflated. A 5 mm 30- degree scope was inserted into the abdomen and inspected the area underneath my initial trocar incision. No damage to surrounding structures was noted. The patient was then placed into reverse Trendelenburg position and airplaned slightly to the left. 5 mm trocars were placed under direct visualization in the following locations, one in the epigastric area, one in the right flank, and one 2 fingerbreadths below the right subcostal margin along the midclavicular line. The dome of the gallbladder was grasped and elevated. This allowed exposure of the infundibulum. There were a couple of wispy adhesions to the underlying omentum. These were taken down with hook cautery and blunt dissection. The infundibulum was then carefully dissected out using a Giovana dissector and hook cautery. The cystic plate was easily cleared away, more than 2/[address] up the gallbladder fossa. This allowed adequate identification of the cystic duct and artery, which overlaid each other. Using a right angle, I was able to separate these two structures and obtain my critical view. The cystic duct and artery were doubly clipped and ligated. The remainder of the attachments of the gallbladder to the liver were then taken down with electrocautery. The gallbladder was then placed in an EndoCatch bag and removed through the infraumbilical port site. The Krissy trocar was then reinserted into the abdomen and I inspected my operative field. There appeared to be no bile leak and my clips were in good position. The area was hemostatic. No irrigation was needed. The 5 mm trocars were removed under direct visualization. The 12 mm Krissy trocar was then removed and the abdomen desufflated. The infraumbilical port site fascia was closed with interrupted 0 Vicryl sutures. The subcutaneous fat was closed with interrupted 3-0 Vicryl. The skin was closed with a running 4-0 Monocryl stitch. The 5 mm trocar sites were closed with interrupted 4-0 Monocryl sutures. Steri-Strips and sterile dressings were applied. The patient tolerated the procedure well and was taken to PACU in stable condition. KATHY OCONNOR /[id number] EDVIN
== END 2017-08-19 12:35 | disposition home or self-care (01) ==
LOC: MW.SDS 07:14
PROVIDERS: ATTEND Surgery
DX: K80.10 Calculus of gallbladder with chronic cholecystitis without obstruction (principal); J45.909 Unspecified asthma, uncomplicated; K21.9 Gastro-esophageal reflux disease without esophagitis; G43.909 Migraine, unspecified, not intractable, without status migrainosus; G89.29 Other chronic pain; M54.9 Dorsalgia, unspecified; F41.9 Anxiety disorder, unspecified; Z79.899 Other long term (current) drug therapy; Z98.51 Tubal ligation status; Z98.890 Other specified postprocedural states; Z87.891 Personal history of nicotine dependence
CPT/HCPCS: 47562; 81025; A9270; J0690; J1100; J2250; J2270; J2405; J3010; J7120; J2704

== ENCOUNTER 2017-10-13 09:08 | Emergency (ER) | payer BC ==
[2017-10-13] MEDS ORDERED: Sodium Chloride 0.9% 2.5 ML Syringe FLUSH PRN (09:12)
[2017-10-13] MEDS ORDERED: Sodium Chloride 0.9% 10 ML Syringe FLUSH PRN (09:12)
--- NOTE | 2017-10-13 09:15 | EDM.PDOC ---
ED HPI GENERAL MEDICAL PROBLEM - General Stated Complaint: CHEST PAIN Time Seen by Provider: 10/13/17 09:11 Source of Information: Reports: Patient History Limitations: Reports: No Limitations - History of Present Illness INITIAL COMMENTS - FREE TEXT/NARRATIVE: History of present illness: []Patient started having back pain radiating to her chest 20 minutes prior to arrival. Patient has had this pain a few times in the past and was diagnosed with gallbladder disease. She has since had her gallbladder removed. Patient states the pain is sharp and is short of breath, she denies any bloody stools. Patient states she's had an EGD that has ruled out ulcers, she has changed her diet, quit drinking alcohol, takes Protonix daily and nothing has helped her. Review of systems: As per history of present illness and below otherwise all systems reviewed and negative. Past medical history: As per history of present illness and as reviewed below otherwise noncontributory. Surgical history: As per history of present illness and as reviewed below otherwise noncontributory. Social history: No reported history of drug or alcohol abuse. Family history: As per history of present illness and as reviewed below otherwise noncontributory. Physical exam: General: Well developed, well nourished in NAD HEENT: Atraumatic, normocephalic, pupils reactive, negative for conjunctival pallor or scleral icterus, mucous membranes moist, throat clear, neck supple, nontender, trachea midline. Lungs: Clear to auscultation, breath sounds equal bilaterally, chest nontender. Heart: S1S2, regular, negative for clicks, rubs, or JVD. Abdomen: Soft, nondistended, nontender. Negative for masses or hepatosplenomegaly. Negative for costovertebral tenderness. Pelvis: Stable nontender. Genitourinary: Deferred. Rectal: Deferred. Extremities: Atraumatic, negative for cords or calf pain. Neurovascular unremarkable. Neuro: Awake, alert, oriented. Cranial nerves II through XII unremarkable. Cerebellum unremarkable. Motor and sensory unremarkable throughout. Exam nonfocal. Diagnostics: []Vital signs all within normal limits, EKG without ischemic changes, CBC normal , chemistry normal, lipase is negative, chest x-ray shows trace left pleural effusion Therapeutics: []Morphine, Pepcid, GI cocktail, none of which has helped her pain. Impression: []Abdominal pain, not otherwise specified Plan: []Follow up with primary care and/or general surgery Definitive disposition and diagnosis as appropriate pending reevaluation and review of above. chest Pain Score (Numeric/FACES): 6 - Related Data Allergies Allergy/AdvReac Type Severity Reaction Status Date / Time No Known Allergies Allergy Verified 10/13/17 09:15 Home Meds: Home Meds PARoxetine [Paxil] 10 mg PO DAILY 10/13/17 [History] Pantoprazole Sodium 40 mg PO DAILY 10/13/17 [History] Past Medical History HEENT History: Reports: Other (See Below) Other HEENT History: wears glasses Cardiovascular History: Reports: Heart Murmur Respiratory History: Reports: Asthma, Other (See Below) Other Respiratory History: states "asthma comes in the form of heartburn" Gastrointestinal History: Reports: GERD Genitourinary History: Reports: None 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: Musculoskeletal History: Reports: Arthritis, Back Pain, Chronic Neurological History: Reports: Concussion, Migraines Other Neuro History: states migraines if no caffeine Psychiatric History: Reports: Anxiety Endocrine/Metabolic History: Reports: None Hematologic History: Reports: Blood Transfusion(s) Immunologic History: Reports: None Oncologic (Cancer) History: Reports: None Dermatologic History: Reports: None - Past Surgical History Head Surgeries/Procedures: Reports: None GI Surgical History: Reports: EGD Female Surgical History: Reports: Section, Tubal Ligation Social & Family History - Family History Family Medical History: Noncontributory - Caffeine Use Caffeine Use: Reports: Coffee, Energy Drinks, Soda, Tea ED ROS GENERAL - Review of Systems Review Of Systems: See Below (The history of present illness) ED EXAM, GENERAL - Physical Exam Exam: See Below (History of present illness) Course - Vital Signs Last Recorded V/S: Last Vital Signs Temp 98.5 F 10/13/17 09:16 Pulse 76 10/13/17 10:31 Resp 20 10/13/17 10:31 BP 101/56 L 10/13/17 10:31 Pulse Ox 98 10/13/17 10:31 - Orders/Labs/Meds Orders: Active Orders 24 hr Category Date Time Status EKG Documentation Completion [RC] STAT Care 10/13/17 09:12 Active Sodium Chloride 0.9% [Saline Flush] Med 10/13/17 09:12 Active 10 ml FLUSH ASDIRECTED PRN Sodium Chloride 0.9% [Saline Flush] Med 10/13/17 09:12 Active 2.5 ml FLUSH ASDIRECTED PRN Saline Lock Insert [OM.PC] Stat Oth 10/13/17 09:12 Ordered Medication Orders Sodium Chloride (Saline Flush) 10 ml FLUSH ASDIRECTED PRN PRN Reason: Keep Vein Open Last Admin: 10/13/17 09:36 Dose: 10 ml Sodium Chloride (Saline Flush) 2.5 ml FLUSH ASDIRECTED PRN PRN Reason: Keep Vein Open Last Admin: 10/13/17 09:36 Dose: 2.5 ml Labs: Laboratory Tests 10/13/17 10/13/17 Range/Units 09:27 09:27 WBC 7.74 (4.0-11.0) K/uL RBC 4.70 (4.30-5.90) M/uL Hgb 11.2 L (12.0-16.0) g/dL Hct 36.3 (36.0-46.0) % MCV 77.2 L (80.0-98.0) fL MCH 23.8 L (27.0-32.0) pg MCHC 30.9 L (31.0-37.0) g/dL RDW Std Deviation 47.4 (28.0-62.0) fl RDW Coeff of Huyen 17 H (11.0-15.0) % Plt Count 298 (150-400) K/uL MPV 10.20 (7.40-12.00) fL Neut % (Auto) 71.5 (48.0-80.0) % Lymph % (Auto) 21.2 (16.0-40.0) % [place] % (Auto) 6.5 (0.0-15.0) % Eos % (Auto) 0.5 (0.0-7.0) % Baso % (Auto) 0.3 (0.0-1.5) % Neut # (Auto) 5.5 (1.4-5.7) K/uL Lymph # (Auto) 1.6 (0.6-2.4) K/uL [place] # (Auto) 0.5 (0.0-0.8) K/uL Eos # (Auto) 0.0 (0.0-0.7) K/uL Baso # (Auto) 0.0 (0.0-0.1) K/uL Nucleated RBC % 0.0 /100WBC Nucleated RBCs # 0 K/uL Sodium 138 (136-145) mmol/L Potassium 3.7 (3.5-5.1) mmol/L Chloride 105 (98-107) mmol/L Carbon Dioxide 23.5 (21.0-32.0) mmol/L BUN 11 (7.0-18.0) mg/dL Creatinine 0.8 (0.6-1.0) mg/dL Est Cr Clr Drug Dosing 81.53 mL/min Estimated GFR (MDRD) > 60.0 ml/min Glucose 115 H (74-106) mg/dL Calcium 8.8 (8.5-10.1) mg/dL Total Bilirubin 0.3 (0.2-1.0) mg/dL AST 13 L (15-37) IU/L ALT 21 (14-63) IU/L Alkaline Phosphatase 70 (46-116) U/L Troponin I < 0.050 (0.000-0.056) ng/mL Total Protein 8.0 (6.4-8.2) g/dL Albumin 3.9 (3.4-5.0) g/dL Globulin 4.1 H (2.0-3.5) g/dL Albumin/Globulin Ratio 1.0 L (1.3-2.8) Lipase 149 (73-393) U/L Meds: Medications Generic Name Dose Route Start Last Admin Trade Name Freq PRN Reason Stop Dose Admin Sodium Chloride 10 ml 10/13/17 09:12 10/13/17 09:36 Saline Flush FLUSH 10 ml ASDIRECTED PRN Administration Keep Vein Open Sodium Chloride 2.5 ml 10/13/17 09:12 10/13/17 09:36 Saline Flush FLUSH 2.5 ml ASDIRECTED PRN Administration Keep Vein Open Discontinued Medications Generic Name Dose Route Start Last Admin Trade Name Freq PRN Reason Stop Dose Admin Al Hydroxide/Mg Hydroxide 15 0 ml 10/13/17 09:23 10/13/17 09:35 ml/ Lidocaine HCl 5 ml PO 10/13/17 09:24 1 each ONETIME ONE Administration Famotidine 20 mg 10/13/17 10:12 10/13/17 10:27 Pepcid IVPUSH 10/13/17 10:13 20 mg ONETIME ONE Administration Morphine Sulfate 2 mg 10/13/17 09:23 10/13/17 09:36 Morphine IVPUSH 10/13/17 09:24 2 mg ONETIME ONE Administration Morphine Sulfate 2 mg 10/13/17 10:13 10/13/17 10:28 Morphine IVPUSH 10/13/17 10:14 2 mg ONETIME ONE Administration Ondansetron HCl 4 mg 10/13/17 09:23 10/13/17 09:36 Zofran IVPUSH 10/13/17 09:24 4 mg ONETIME ONE Administration Departure - Departure Time of Disposition: 11:09 Disposition: Home, Self-Care 01 Condition: Good Clinical Impression: Epigastric abdominal pain Additional Instructions: The following information is given to patients seen in the emergency department who are being discharged to home. This information is to outline your options for follow-up care. We provide all patients seen in our emergency department with a follow-up referral. The need for follow-up, as well as the timing and circumstances, are variable depending upon the specifics of your emergency department visit. If you don't have a primary care physician on staff, we will provide you with a referral. We always advise you to contact your personal physician following an emergency department visit to inform them of the circumstance of the visit and for follow-up with them and/or the need for any referrals to a consulting specialist. The emergency department will also refer you to a specialist when appropriate. This referral assures that you have the opportunity for follow-up care with a specialist. All of these measure are taken in an effort to provide you with optimal care, which includes your follow-up. Under all circumstances we always encourage you to contact your private physician who remains a resource for coordinating your care. When calling for follow-up care, please make the office aware that this follow-up is from your recent emergency room visit. If for any reason you are refused follow-up, please contact the [facility] Emergency Department at and asked to speak to the emergency department charge nurse. [facility] [address] [place] [id number] - My Orders Last 24 Hours: My Active Orders 10/13/17 09:12 EKG Documentation Completion [RC] STAT Sodium Chloride 0.9% [Saline Flush] 10 ml FLUSH ASDIRECTED PRN Sodium Chloride 0.9% [Saline Flush] 2.5 ml FLUSH ASDIRECTED PRN Saline Lock Insert [OM.PC] Stat - Assessment/Plan Last 24 Hours: My Active Orders 10/13/17 09:12 EKG Documentation Completion [RC] STAT Sodium Chloride 0.9% [Saline Flush] 10 ml FLUSH ASDIRECTED PRN Sodium Chloride 0.9% [Saline Flush] 2.5 ml FLUSH ASDIRECTED PRN Saline Lock Insert [OM.PC] Stat
[2017-10-13] MEDS ORDERED: Nitroglycerin 0.4 MG Tab.SL SL PRN (09:18)
[2017-10-13] MEDS ORDERED: Aspirin 81 MG Tab.Chew PO ONE (09:18)
[2017-10-13] MEDS ORDERED: Ondansetron 4 MG/2 ML SDV IVPUSH ONE (09:23)
[2017-10-13] MEDS ORDERED: Alum Hydrox/Mag Hydrox/Simeth 15 ML, Lidocaine 2% 5 ML PO ONE ×2 (09:23)
[2017-10-13] MEDS ORDERED: Morphine 2 MG/ML Syringe IVPUSH ONE ×2 (09:23→10:13)
--- NOTE | 2017-10-13 10:04 | CR ---
EXAMINATION: Portable chest radiograph. HISTORY: Shortness of breath. FINDINGS: The trachea is midline. The cardiomediastinal silhouette is within normal limits. Trace blunting of t he left costophrenic of which may suggest a minimal pleural effusion. Lungs are clear without focal c onsolidation or pneumothorax. Osseous structures appear unremarkable. IMPRESSION: Possible trace left pleural effusion.
[2017-10-13] MEDS ORDERED: Famotidine 20 MG/2 ML SDV IVPUSH ONE (10:12)
[2017-10-13 10:16] LABS: CHLORIDE,CL 105 mmol/L (98-107); SODIUM,NA 138 mmol/L (136-145)
== END 2017-10-13 11:25 | disposition home or self-care (01) ==
LOC: MW.ED 09:08
DX: R10.13 Epigastric pain (principal); K21.9 Gastro-esophageal reflux disease without esophagitis; Z79.899 Other long term (current) drug therapy
CPT/HCPCS: 36415; 71045; 80053; 83690; 84484; 85025; 93005; 96374; 96375; 96376; 99285; A9270; J2270; J2405; J3490

== ENCOUNTER 2017-11-05 10:53 | Emergency (ER) | payer BC ==
[2017-11-05] MEDS ORDERED: Alum Hydrox/Mag Hydrox/Simeth 15 ML, Metoclopramide 5 MG, Lidocaine 2% 5 ML PO ONE ×3 (11:08)
[2017-11-05] MEDS ORDERED: Sodium Chloride 0.9% 1,000 ML IV ONE (11:11)
[2017-11-05] MEDS ORDERED: Famotidine 20 MG/2 ML SDV IVPUSH ONE (11:11)
[2017-11-05] MEDS ORDERED: Ondansetron 4 MG/2 ML SDV IVPUSH ONE (11:11)
--- NOTE | 2017-11-05 11:13 | EDM.PDOC ---
ED HPI GENERAL MEDICAL PROBLEM - General Chief Complaint: Respiratory Problem Stated Complaint: HARD TIME BREATHING Time Seen by Provider: 11/05/17 10:54 Source of Information: Reports: Patient History Limitations: Reports: No Limitations - History of Present Illness INITIAL COMMENTS - FREE TEXT/NARRATIVE: HISTORY AND PHYSICAL: History of present illness: Patient is a 37-year-old female who presents to the emergency room with complaints of epigastric pain, nausea, vomiting and shortness of breath. She has been seen in the emergency room 24 hours prior for the same complaint and did have labs needed at that time. Patient has a history of gallbladder disease and has been seen multiple times through the emergency room and at [facility] for this epigastric pain and similar symptoms. Has had a cholecystecomy in July 2017. She states that she does have an appointment with a [facility] later this month for evaluation/management of the common bile duct. Review of systems: As per history of present illness and below otherwise all systems reviewed and negative. Past medical history: As per history of present illness and as reviewed below otherwise noncontributory. Surgical history: As per history of present illness and as reviewed below otherwise noncontributory. Social history: No reported history of drug or alcohol abuse. Family history: As per history of present illness and as reviewed below otherwise noncontributory. Physical exam: General: Well-developed and well-nourished 37-year-old female. Alert and oriented. Nontoxic appearing and in no acute distress. HEENT: Atraumatic, normocephalic, pupils equal and reactive bilaterally, negative for conjunctival pallor or scleral icterus, mucous membranes moist, throat clear, neck supple, nontender, trachea midline. No drooling or trismus noted. No meningeal signs Lungs: Clear to auscultation, breath sounds equal bilaterally, chest nontender. Heart: S1S2, regular rate and rhythm without overt murmur Abdomen: Soft, nondistended, RUQ and LUQ tenderness with palpation. Unable to appreciate any masses. Negative for costovertebral tenderness. Pelvis: Stable nontender. Genitourinary: Deferred. Rectal: Deferred. Skin: Skin appears slightly jaundice - otherwise skin is intact, warm, dry. No lesions or rashes noted. Extremities: Atraumatic, negative for cords or calf pain. Neurovascular unremarkable. Neuro: Awake, alert, oriented. Cranial nerves II through XII unremarkable. Cerebellum unremarkable. Motor and sensory unremarkable throughout. Exam nonfocal. Notes: Patient was seen 10/13/17 in the emergency room for similar symptoms. CT of the chest, abdomen and pelvis was completed on 10/19/17 - unremarkable results. Labs on 11/03/17 showed a AST: 232 and ALT: 117, with a Total Yobani of 1.0. Today' s AST: 250 and ALT: 404, with a Total Bili of 5.1. An ultrasound has been ordered. VSS. Chest xray is unremarkable. Ultrasound shows prominence of the one bile duct measuring to 1.3 cm. A filling deficit with distal duct is not excluded and could represent choledocholithiasis. Mildly heterogenous hyperechoic areas within the left hepatic lobe. 1350: Dr Abbasi, general surgeon on-call, was consulted on this patient. Requests patient being transferred due to patient needing ERCP. 1400: Dr Seth Tisha in [place] was contacted - unable to perform ERCP. Unable to accept patient. 1416: [facility] in [place] is unable to take this patient due to their ERCP provider being [facility] 11/15/17 1420: , Dr Cosme and Cedrick, consult did on this patient. She'll be a direct admit. We'll hang Zosyn IV and give her additional pain medications prior to transfer. Patient is aware and agreeable to plan of care. She'll go via ground EMS. Diagnostics: CBC, CMP, H.Pylori, UA, limited abdominal ultrasound Therapeutics: NS, Zofran, GI Cocktail, Protonix, Dilaudid, Zosyn Prescription: None Impression: Abdominal Pain Plan: Transfer to via ground EMS Definitive disposition and diagnosis as appropriate pending reevaluation and review of above. Duration: Day(s): Location: Reports: Abdomen Upper Epigastric Pain Score (Numeric/FACES): 10 - Related Data Allergies Allergy/AdvReac Type Severity Reaction Status Date / Time No Known Allergies Allergy Verified 11/05/17 12:06 Home Meds: Home Meds Pantoprazole Sodium 40 mg PO DAILY 10/13/17 [History] Ketorolac [Toradol] 1 tab PRN 11/05/17 [History] Past Medical History HEENT History: Reports: Other (See Below) Other HEENT History: wears glasses Cardiovascular History: Reports: Heart Murmur Respiratory History: Reports: Asthma, Other (See Below) Other Respiratory History: states "asthma comes in the form of heartburn" Gastrointestinal History: Reports: GERD Genitourinary History: Reports: None [employer]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: Musculoskeletal History: Reports: Arthritis, Back Pain, Chronic Neurological History: Reports: Concussion, Migraines Other Neuro History: states migraines if no caffeine Psychiatric History: Reports: Anxiety Endocrine/Metabolic History: Reports: None Hematologic History: Reports: Blood Transfusion(s) Immunologic History: Reports: None Oncologic (Cancer) History: Reports: None Dermatologic History: Reports: None - Infectious Disease History Infectious Disease History: Reports: Chicken Pox - Past Surgical History Head Surgeries/Procedures: Reports: None GI Surgical History: Reports: Cholecystectomy, EGD Female Surgical History: Reports: Section, Tubal Ligation Social & Family History - Family History Family Medical History: Noncontributory - Tobacco Use Smoking Status *Q: Current Some Day Smoker Years of Tobacco use: 18 Packs/Tins Daily: 0.1 - Caffeine Use Caffeine Use: Reports: Coffee - Recreational Drug Use Recreational Drug Use: No ED ROS GENERAL - Review of Systems Review Of Systems: ROS reveals no pertinent complaints other than HPI. ED EXAM, GENERAL - Physical Exam Exam: See Below (See dictation) Course - Vital Signs Last Recorded V/S: Last Vital Signs Temp 97.2 F 11/05/17 10:56 Pulse 64 11/05/17 10:56 Resp 26 H 11/05/17 10:56 BP 122/74 11/05/17 10:56 Pulse Ox 100 11/05/17 10:56 - Orders/Labs/Meds Orders: Active Orders 24 hr Category Date Time Status Piperacillin/Tazobactam [Piperacil-Tazobact] 4.5 gm Med 11/05/17 14:34 Active Sodium Chloride 0.9% [Normal Saline] 100 ml IV ONETIME Sodium Chloride 0.9% [Normal Saline] 1,000 ml Med 11/05/17 14:45 Active IV ASDIRECTED Medication Orders Piperacillin Sod/Tazobactam (Sod 4.5 gm/ Sodium Chloride) 100 mls @ 100 mls/hr IV ONETIME ONE Stop: 11/05/17 15:33 Sodium Chloride (Normal Saline) 1,000 mls @ 75 mls/hr IV ASDIRECTED [facility] Labs: Laboratory Tests 11/05/17 11/05/17 11/05/17 Range/Units 11:19 11:19 11:19 WBC 11.10 H (4.0-11.0) K/uL RBC 4.72 (4.30-5.90) M/uL Hgb 11.2 L (12.0-16.0) g/dL Hct 36.2 (36.0-46.0) % MCV 76.7 L (80.0-98.0) fL MCH 23.7 L (27.0-32.0) pg MCHC 30.9 L (31.0-37.0) g/dL RDW Std Deviation 45.6 (28.0-62.0) fl RDW Coeff of Huyen 17 H (11.0-15.0) % Plt Count 255 (150-400) K/uL MPV 9.80 (7.40-12.00) fL Neut % (Auto) 88.2 H (48.0-80.0) % Lymph % (Auto) 5.9 L (16.0-40.0) % [place] % (Auto) 5.4 (0.0-15.0) % Eos % (Auto) 0.3 (0.0-7.0) % Baso % (Auto) 0.2 (0.0-1.5) % Neut # (Auto) 9.8 H (1.4-5.7) K/uL Lymph # (Auto) 0.7 (0.6-2.4) K/uL [place] # (Auto) 0.6 (0.0-0.8) K/uL Eos # (Auto) 0.0 (0.0-0.7) K/uL Baso # (Auto) 0.0 (0.0-0.1) K/uL Nucleated RBC % 0.0 /100WBC Nucleated RBCs # 0 K/uL Sodium 138 (136-145) mmol/L Potassium 3.8 (3.5-5.1) mmol/L Chloride 102 (98-107) mmol/L Carbon Dioxide 27.0 (21.0-32.0) mmol/L BUN 7 (7.0-18.0) mg/dL Creatinine 0.8 (0.6-1.0) mg/dL Est Cr Clr Drug Dosing 81.53 mL/min Estimated GFR (MDRD) > 60.0 ml/min Glucose 130 H (74-106) mg/dL Calcium 8.8 (8.5-10.1) mg/dL Total Bilirubin 5.1 H (0.2-1.0) mg/dL AST 250 H (15-37) IU/L ALT 404 H (14-63) IU/L Alkaline Phosphatase 185 H (46-116) U/L Total Protein 7.8 (6.4-8.2) g/dL Albumin 3.8 (3.4-5.0) g/dL Globulin 4.0 H (2.0-3.5) g/dL Albumin/Globulin Ratio 1.0 L (1.3-2.8) H. pylori IgG Antibody NEGATIVE (NEG) Meds: Medications Generic Name Dose Route Start Last Admin Trade Name Freq PRN Reason Stop Dose Admin Piperacillin Sod/Tazobactam 100 mls @ 100 mls/hr 11/05/17 14:34 Sod 4.5 gm/ Sodium Chloride IV 11/05/17 15:33 ONETIME ONE Sodium Chloride 1,000 mls @ 75 mls/hr 11/05/17 14:45 Normal Saline IV ASDIRECTED [facility] Discontinued Medications Generic Name Dose Route Start Last Admin Trade Name Freq PRN Reason Stop Dose Admin Al Hydroxide/Mg Hydroxide 15 0 ml 11/05/17 11:08 11/05/17 11:34 ml/ Metoclopramide HCl 5 mg/ PO 11/05/17 11:09 1 each Lidocaine HCl 5 ml ONETIME ONE Administration Famotidine 20 mg 11/05/17 11:11 11/05/17 11:32 Pepcid IVPUSH 11/05/17 11:12 20 mg ONETIME ONE Administration Hydromorphone HCl 0.5 mg 11/05/17 12:14 11/05/17 12:26 Dilaudid IV 11/05/17 12:15 0.5 mg ONETIME ONE Administration Hydromorphone HCl 0.5 mg 11/05/17 14:34 Dilaudid IVPUSH 11/05/17 14:35 ONETIME ONE Sodium Chloride 1,000 mls @ 999 mls/hr 11/05/17 11:11 11/05/17 11:32 Normal Saline IV 11/05/17 12:11 999 mls/hr STAT ONE Administration Ondansetron HCl 4 mg 11/05/17 11:11 11/05/17 11:33 Zofran IVPUSH 11/05/17 11:12 4 mg ONETIME ONE Administration Departure - Departure Time of Disposition: 14:47 Disposition: DC/[facility] to [facility] 02 Clinical Impression: Abdominal pain Qualifiers: Abdominal location: upper abdomen, unspecified Qualified Code(s): R10.10 - Upper abdominal pain, unspecified - Discharge Information Referrals: PCP,Unknown [Primary Care Provider] - Forms: ED Department Discharge - My Orders Last 24 Hours: My Active Orders 11/05/17 14:34 Piperacillin/Tazobactam [Piperacil-Tazobact] 4.5 gm Sodium Chloride 0.9% [ Normal Saline] 100 ml IV ONETIME 11/05/17 14:45 Sodium Chloride 0.9% [Normal Saline] 1,000 ml IV ASDIRECTED - Assessment/Plan Last 24 Hours: My Active Orders 11/05/17 14:34 Piperacillin/Tazobactam [Piperacil-Tazobact] 4.5 gm Sodium Chloride 0.9% [ Normal Saline] 100 ml IV ONETIME 11/05/17 14:45 Sodium Chloride 0.9% [Normal Saline] 1,000 ml IV ASDIRECTED
--- NOTE | 2017-11-05 12:02 | CR ---
EXAMINATION: Two-view chest (PA and Lateral views). HISTORY: Shortness of breath. Comparison: CT dated 10/19/2017. FINDINGS: The trachea is midline. The cardiomediastinal silhouette is within normal limits. No pulmonary infilt rates, effusions or pneumothorax. Prominent nipple shadows noted. Osseous structures appear unremarkable. IMPRESSION: No acute cardiopulmonary process.
[2017-11-05 12:03] LABS: CHLORIDE,CL 102 mmol/L (98-107); SODIUM,NA 138 mmol/L (136-145)
[2017-11-05] MEDS ORDERED: HYDROmorphone 2 MG/ML SDV IV ONE (12:14)
--- NOTE | 2017-11-05 13:47 | US ---
EXAMINATION: Right upper quadrant ultrasound HISTORY: Attention to gallbladder COMPARISON: CT dated 10/19/2017 TECHNIQUE: Grayscale and color Doppler images obtained of the right upper quadrant. FINDINGS: The visualized pancreas appears normal. The pancreatic duct measures 2 mm. The liver is nor mal in contour and echotexture without a focal hepatic mass. There are a few vague hyperechoic areas within the left hepatic lobe noted. The common bile duct measures up to 1.3 cm. Cholecystectomy. Echo genic focus within the region of the cystic duct possibly a clip. The right kidney measures 10.6 cm p ole-to-pole without evidence of hydronephrosis. IMPRESSION: 1. Status post cholecystectomy. 2. Prominence of the common bile duct measuring up to 1.3 cm. A filling defect within the distal duct is not excluded and could represent choledocholithiasis. 3. Mildly heterogeneous hyperechoic areas within the left hepatic lobe, measuring the prior CT this m ost likely represents focal fatty infiltration.
[2017-11-05] MEDS ORDERED: HYDROmorphone 2 MG/ML Syringe IVPUSH ONE (14:34)
[2017-11-05] MEDS ORDERED: Piperacillin/Tazobactam 4.5 GM in Sodium Chloride 0.9% 100 ML IV ONE (14:34)
[2017-11-05] MEDS ORDERED: Sodium Chloride 0.9% 1,000 ML IV SCH (14:45)
[2017-11-05] MEDS ORDERED: HYDROmorphone 1 MG/ML Syringe IVPUSH ONE (14:58)
== END 2017-11-05 15:50 ==
LOC: MW.ED 10:53
DX: R10.10 Upper abdominal pain, unspecified (principal); R10.13 Epigastric pain; F17.210 Nicotine dependence, cigarettes, uncomplicated; Z79.899 Other long term (current) drug therapy
CPT/HCPCS: 36415; 71046; 76705; 80053; 85025; 86677; 96361; 96365; 96375; 96376; 99285; A9270; J1170; J2405; J2543; J3490; J7030; J7040; 99284

== ENCOUNTER 2018-09-16 02:28 | Emergency (ER) | payer BC ==
[2018-09-16 03:28] LABS: CHLORIDE,CL 100 mmol/L (98-107); SODIUM,NA 133 mmol/L (136-145)
--- NOTE | 2018-09-16 03:55 | EDM.PDOC ---
ED HPI GENERAL MEDICAL PROBLEM - General Chief Complaint: General Stated Complaint: PAIN IN RIGHT LEG AND ARM; VERY HOT Time Seen by Provider: 09/16/18 03:59 - History of Present Illness INITIAL COMMENTS - FREE TEXT/NARRATIVE: HISTORY AND PHYSICAL: History of present illness: Patient 38-year-old female presents with a concern of abdominal pain she is past medical history significant for Gerds . This pain is nonlocalized she states it makes her feel warm all over the no vomiting diarrhea vaginal discharge or urinary tract signs or symptoms Review of systems: As per history of present illness and below otherwise all systems reviewed and negative. Past medical history: As per history of present illness and as reviewed below otherwise noncontributory. Surgical history: As per history of present illness and as reviewed below otherwise noncontributory. Social history: No reported history of drug or alcohol abuse. Family history: As per history of present illness and as reviewed below otherwise noncontributory. Physical exam: HEENT: Atraumatic, normocephalic, pupils reactive, negative for conjunctival pallor or scleral icterus, mucous membranes moist, throat clear, neck supple, nontender, trachea midline. Lungs: Clear to auscultation, breath sounds equal bilaterally, chest nontender. Heart: S1S2, regular, negative for clicks, rubs, or JVD. Abdomen: Soft, nondistended, nontender. Negative for masses or hepatosplenomegaly. Negative for costovertebral tenderness. Pelvis: Stable nontender. Genitourinary: Deferred. Rectal: Deferred. Extremities: Atraumatic, negative for cords or calf pain. Neurovascular unremarkable. Neuro: Awake, alert, oriented. Cranial nerves II through XII unremarkable. Cerebellum unremarkable. Motor and sensory unremarkable throughout. Exam nonfocal. Diagnostics: CBC CMP UA chest x-ray EKG Hcg Therapeutics: None Impression: #1 undifferentiated abdominal pain #2 medical screening exam #3 #4 history of gastroesophageal reflux disease Definitive disposition and diagnosis as appropriate pending reevaluation and review of above. left arm and leg Pain Score (Numeric/FACES): 8 - Related Data Allergies Allergy/AdvReac Type Severity Reaction Status Date / Time No Known Allergies Allergy Verified 09/16/18 02:37 Home Meds: Home Meds . 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 Musculoskeletal History: Reports: Arthritis, Back Pain, Chronic Neurological History: Reports: Concussion, Migraines Other Neuro History: states migraines if no caffeine Psychiatric History: Reports: Anxiety Endocrine/Metabolic History: Reports: None Hematologic History: Reports: Blood Transfusion(s), Iron Deficiency Immunologic History: Reports: None Oncologic (Cancer) History: Reports: None Dermatologic History: Reports: None - Infectious Disease History Infectious Disease History: Reports: Chicken Pox - Past Surgical History Head Surgeries/Procedures: Reports: None HEENT Surgical History: Reports: None Cardiovascular Surgical History: Reports: None Respiratory Surgical History: Reports: None GI Surgical History: Reports: Cholecystectomy, EGD Female Surgical History: Reports: Section, Tubal Ligation Endocrine Surgical History: Reports: None Neurological Surgical History: Reports: None Musculoskeletal Surgical History: Reports: None Oncologic Surgical History: Reports: None Dermatological Surgical History: Reports: None Social & Family History - Family History Family Medical History: Noncontributory - Tobacco Use Smoking Status *Q: Former Smoker Used Tobacco, but Quit: Yes Month/Year Tobacco Last Used: 4 months - Caffeine Use Caffeine Use: Reports: Coffee, Energy Drinks - Recreational Drug Use Recreational Drug Use: No ED ROS GENERAL - Review of Systems Review Of Systems: ROS reveals no pertinent complaints other than HPI. ED EXAM, GENERAL - Physical Exam Exam: See Below (Dictation) Course - Vital Signs Last Recorded V/S: Last Vital Signs Temp 35.6 C 09/16/18 02:35 Pulse 90 09/16/18 02:35 Resp 18 09/16/18 02:35 BP 117/54 L 09/16/18 02:35 Pulse Ox 99 09/16/18 02:35 - Orders/Labs/Meds Orders: Active Orders 24 hr Category Date Time Status EKG 12 Lead [EKG Documentation Completion] [RC] STAT Care 09/16/18 02:45 Active Chest 1V Frontal [CR] Stat Exams 09/16/18 02:45 Taken Labs: Laboratory Tests 09/16/18 09/16/18 09/16/18 Range/Units 02:50 02:50 02:55 WBC 7.73 (4.0-11.0) K/uL RBC 3.89 L (4.30-5.90) M/uL Hgb 9.8 L (12.0-16.0) g/dL Hct 32.5 L (36.0-46.0) % MCV 83.5 (80.0-98.0) fL MCH 25.2 L (27.0-32.0) pg MCHC 30.2 L (31.0-37.0) g/dL RDW Std Deviation 47.0 (28.0-62.0) fl RDW Coeff of Huyen 15 (11.0-15.0) % Plt Count 316 (150-400) K/uL MPV 9.60 (7.40-12.00) fL Neut % (Auto) 76.8 (48.0-80.0) % Lymph % (Auto) 16.2 (16.0-40.0) % [place] % (Auto) 6.2 (0.0-15.0) % Eos % (Auto) 0.3 (0.0-7.0) % Baso % (Auto) 0.5 (0.0-1.5) % Neut # (Auto) 5.9 H (1.4-5.7) K/uL Lymph # (Auto) 1.3 (0.6-2.4) K/uL [place] # (Auto) 0.5 (0.0-0.8) K/uL Eos # (Auto) 0.0 (0.0-0.7) K/uL Baso # (Auto) 0.0 (0.0-0.1) K/uL Nucleated RBC % 0.0 /100WBC Nucleated RBCs # 0 K/uL Sodium (136-145) mmol/L Potassium (3.5-5.1) mmol/L Chloride (98-107) mmol/L Carbon Dioxide (21.0-32.0) mmol/L BUN (7.0-18.0) mg/dL Creatinine (0.6-1.0) mg/dL Est Cr Clr Drug Dosing mL/min Estimated GFR (MDRD) ml/min Glucose (74-106) mg/dL Calcium (8.5-10.1) mg/dL Total Bilirubin (0.2-1.0) mg/dL AST (15-37) IU/L ALT (14-63) IU/L Alkaline Phosphatase (46-116) U/L Total Protein (6.4-8.2) g/dL Albumin (3.4-5.0) g/dL Globulin (2.6-4.0) g/dL Albumin/Globulin Ratio (0.9-1.6) Urine Color YELLOW Urine Appearance CLEAR Urine pH 6.0 (5.0-8.0) Ur Specific [place] <= 1.005 (1.001-1.035) Urine Protein NEGATIVE (NEGATIVE) mg/dL Urine Glucose (UA) NEGATIVE (NEGATIVE) mg/dL Urine Ketones NEGATIVE (NEGATIVE) mg/dL Urine Occult Blood NEGATIVE (NEGATIVE) Urine Nitrite NEGATIVE (NEGATIVE) Urine Bilirubin NEGATIVE (NEGATIVE) Urine Urobilinogen 0.2 (<2.0) EU/dL Ur Leukocyte Esterase NEGATIVE (NEGATIVE) Urine HCG, Qual NEGATIVE (NEGATIVE) 09/16/18 Range/Units 02:55 WBC (4.0-11.0) K/uL RBC (4.30-5.90) M/uL Hgb (12.0-16.0) g/dL Hct (36.0-46.0) % MCV (80.0-98.0) fL MCH (27.0-32.0) pg MCHC (31.0-37.0) g/dL RDW Std Deviation (28.0-62.0) fl RDW Coeff of Huyen (11.0-15.0) % Plt Count (150-400) K/uL MPV (7.40-12.00) fL Neut % (Auto) (48.0-80.0) % Lymph % (Auto) (16.0-40.0) % [place] % (Auto) (0.0-15.0) % Eos % (Auto) (0.0-7.0) % Baso % (Auto) (0.0-1.5) % Neut # (Auto) (1.4-5.7) K/uL Lymph # (Auto) (0.6-2.4) K/uL [place] # (Auto) (0.0-0.8) K/uL Eos # (Auto) (0.0-0.7) K/uL Baso # (Auto) (0.0-0.1) K/uL Nucleated RBC % /100WBC Nucleated RBCs # K/uL Sodium 133 L (136-145) mmol/L Potassium 3.2 L (3.5-5.1) mmol/L Chloride 100 (98-107) mmol/L Carbon Dioxide 27.1 (21.0-32.0) mmol/L BUN 10 (7.0-18.0) mg/dL Creatinine 0.6 (0.6-1.0) mg/dL Est Cr Clr Drug Dosing 102.63 mL/min Estimated GFR (MDRD) > 60.0 ml/min Glucose 130 H (74-106) mg/dL Calcium 8.8 (8.5-10.1) mg/dL Total Bilirubin 0.6 (0.2-1.0) mg/dL AST 28 (15-37) IU/L ALT 24 (14-63) IU/L Alkaline Phosphatase 64 (46-116) U/L Total Protein 7.6 (6.4-8.2) g/dL Albumin 4.2 (3.4-5.0) g/dL Globulin 3.4 (2.6-4.0) g/dL Albumin/Globulin Ratio 1.2 (0.9-1.6) Urine Color Urine Appearance Urine pH (5.0-8.0) Ur Specific [place] (1.001-1.035) Urine Protein (NEGATIVE) mg/dL Urine Glucose (UA) (NEGATIVE) mg/dL Urine Ketones (NEGATIVE) mg/dL Urine Occult Blood (NEGATIVE) Urine Nitrite (NEGATIVE) Urine Bilirubin (NEGATIVE) Urine Urobilinogen (<2.0) EU/dL Ur Leukocyte Esterase (NEGATIVE) Urine HCG, Qual (NEGATIVE) Departure - Departure Time of Disposition: 03:58 Disposition: Home, Self-Care 01 Condition: Good Clinical Impression: Anemia Abdominal pain Qualifiers: Abdominal location: upper abdomen, unspecified Qualified Code(s): R10.10 - Upper abdominal pain, unspecified - Discharge Information Referrals: Nelida Garcia NP [Primary Care Provider] - Forms: ED Department Discharge Additional Instructions: The following information is given to patients seen in the emergency department who are being discharged to home. This information is to outline your options for follow-up care. We provide all patients seen in our emergency department with a follow-up referral. The need for follow-up, as well as the timing and circumstances, are variable depending upon the specifics of your emergency department visit. If you don't have a primary care physician on staff, we will provide you with a referral. We always advise you to contact your personal physician following an emergency department visit to inform them of the circumstance of the visit and for follow-up with them and/or the need for any referrals to a consulting specialist. The emergency department will also refer you to a specialist when appropriate. This referral assures that you have the opportunity for followup care with a specialist. All of these measure are taken in an effort to provide you with optimal care, which includes your followup. Under all circumstances we always encourage you to contact your private physician who remains a resource for coordinating your care. When calling for followup care, please make the office aware that this follow-up is from your recent emergency room visit. If for any reason you are refused follow-up, please contact the [facility] emergency department at and asked to speak to the emergency department charge nurse. [facility] Specialty Care - General Surgery Professional Building [address] [place] [address], [address] [place] [address] Protonix as prescribed follow-up primary medical doctor call schedule appointment with general surgery above return as needed as discussed - My Orders Last 24 Hours: My Active Orders 09/16/18 02:45 EKG 12 Lead [EKG Documentation Completion] [RC] STAT Chest 1V Frontal [CR] Stat - Assessment/Plan Last 24 Hours: My Active Orders 09/16/18 02:45 EKG 12 Lead [EKG Documentation Completion] [RC] STAT Chest 1V Frontal [CR] Stat
--- NOTE | 2018-09-19 18:05 | CR ---
EXAM DATE: 09/16/18 PATIENT'S AGE: 38 Patient: CARMEN HYMAN Facility: [facility] Site Site : 1980 Study: XRay-Chest [id number]/[id number] 3:46:59 AM Ordering Physician: GEORGE DUMONT Final Report: Indication: Shortness of breath, pain Technique: Chest 1 view Comparison: None Findings: Cardiovascular and mediastinum: Heart size and vasculature are normal in caliber and appearance. Mediastinum is within normal limits. Lungs and pleural space: Lungs are clear. No sign of infiltrate or mass. No sign of pleural effusion. No pneumothorax. Bones and soft tissues: Mild S shaped scoliosis. Impression: : No acute abnormality. Dictated by Laney Tillman MD @ Sep 16 2018 4:31AM Signed by: Laney Tillman MD @09/16/2018 4:31:17 AM (Electronic Signature) Report Signed by Proxy. [facility]
== END 2018-09-16 04:24 | disposition home or self-care (01) ==
LOC: MW.ED 02:28
DX: R10.10 Upper abdominal pain, unspecified (principal); D64.9 Anemia, unspecified; M19.90 Unspecified osteoarthritis, unspecified site; Z90.49 Acquired absence of other specified parts of digestive tract; Z98.51 Tubal ligation status; Z87.891 Personal history of nicotine dependence
CPT/HCPCS: 36415; 71045; 71045-26; 80053; 81003; 81025; 85025; 93005; 99284-25

== ENCOUNTER 2018-10-24 23:32 | Emergency (ER) | payer BC ==
--- NOTE | 2018-10-24 23:57 | EDM.PDOC ---
ED HPI GENERAL MEDICAL PROBLEM - General Chief Complaint: ENT Problem Stated Complaint: LT EAR HURTS Time Seen by Provider: 10/24/18 23:39 - History of Present Illness INITIAL COMMENTS - FREE TEXT/NARRATIVE: HISTORY AND PHYSICAL: History of present illness: Patient's 38-year-old female presents with a concern of left ear trauma this occurred when she excellently struck her ear on the corner of a door and presents now with a auricular hematoma there was no other trauma or concern Review of systems: As per history of present illness and below otherwise all systems reviewed and negative. Past medical history: As per history of present illness and as reviewed below otherwise noncontributory. Surgical history: As per history of present illness and as reviewed below otherwise noncontributory. Social history: No reported history of drug or alcohol abuse. Family history: As per history of present illness and as reviewed below otherwise noncontributory. Physical exam: HEENT: Small to moderate-sized auricular hematoma noted left ear is no laceration abrasion or other normocephalic, pupils reactive, negative for conjunctival pallor or scleral icterus, mucous membranes moist, throat clear, neck supple, nontender, trachea midline. Lungs: Clear to auscultation, breath sounds equal bilaterally, chest nontender. Heart: S1S2, regular, negative for clicks, rubs, or JVD. Abdomen: Soft, nondistended, nontender. Negative for masses or hepatosplenomegaly. Negative for costovertebral tenderness. Pelvis: Stable nontender. Genitourinary: Deferred. Rectal: Deferred. Extremities: Atraumatic, negative for cords or calf pain. Neurovascular unremarkable. Neuro: Awake, alert, oriented. Cranial nerves II through XII unremarkable. Cerebellum unremarkable. Motor and sensory unremarkable throughout. Exam nonfocal. Diagnostics: None Therapeutics: None Impression: #1 left auricular hematoma Definitive disposition and diagnosis as appropriate pending reevaluation and review of above. left ear Pain Score (Numeric/FACES): 3 - Related Data Allergies Allergy/AdvReac Type Severity Reaction Status Date / Time No Known Allergies Allergy Verified 10/24/18 23:41 Home Meds: Home Meds . 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 Musculoskeletal History: Reports: Arthritis, Back Pain, Chronic Neurological History: Reports: Concussion, Migraines Other Neuro History: states migraines if no caffeine Psychiatric History: Reports: Anxiety Endocrine/Metabolic History: Reports: None Hematologic History: Reports: Blood Transfusion(s), Iron Deficiency Immunologic History: Reports: None Oncologic (Cancer) History: Reports: None Dermatologic History: Reports: None - Infectious Disease History Infectious Disease History: Reports: Chicken Pox - Past Surgical History Head Surgeries/Procedures: Reports: None HEENT Surgical History: Reports: None Cardiovascular Surgical History: Reports: None Respiratory Surgical History: Reports: None GI Surgical History: Reports: Cholecystectomy, EGD Female Surgical History: Reports: Section, Tubal Ligation Endocrine Surgical History: Reports: None Neurological Surgical History: Reports: None Musculoskeletal Surgical History: Reports: None Oncologic Surgical History: Reports: None Dermatological Surgical History: Reports: None Social & Family History - Family History Family Medical History: Noncontributory - Tobacco Use Smoking Status *Q: Current Every Day Smoker Years of Tobacco use: 8 Packs/Tins Daily: 1 - Caffeine Use Caffeine Use: Reports: Coffee, Energy Drinks - Recreational Drug Use Recreational Drug Use: No ED ROS GENERAL - Review of Systems Review Of Systems: ROS reveals no pertinent complaints other than HPI. ED EXAM, GENERAL - Physical Exam Exam: See Below (See dictation) Course - Vital Signs Last Recorded V/S: Last Vital Signs Temp 36.3 C 10/24/18 23:32 Pulse 71 10/24/18 23:32 Resp 18 10/24/18 23:32 BP 101/59 L 10/24/18 23:32 Pulse Ox 100 10/24/18 23:32 Departure - Departure Time of Disposition: 23:54 Disposition: Home, Self-Care 01 Condition: Good Clinical Impression: Hematoma of auricle or pinna - Discharge Information Referrals: PCP,None [Primary Care Provider] - Additional Instructions: The following information is given to patients seen in the emergency department who are being discharged to home. This information is to outline your options for follow-up care. We provide all patients seen in our emergency department with a follow-up referral. The need for follow-up, as well as the timing and circumstances, are variable depending upon the specifics of your emergency department visit. If you don't have a primary care physician on staff, we will provide you with a referral. We always advise you to contact your personal physician following an emergency department visit to inform them of the circumstance of the visit and for follow-up with them and/or the need for any referrals to a consulting specialist. The emergency department will also refer you to a specialist when appropriate. This referral assures that you have the opportunity for followup care with a specialist. All of these measure are taken in an effort to provide you with optimal care, which includes your followup. Under all circumstances we always encourage you to contact your private physician who remains a resource for coordinating your care. When calling for followup care, please make the office aware that this follow-up is from your recent emergency room visit. If for any reason you are refused follow-up, please contact the [facility] emergency department at and asked to speak to the emergency department charge nurse. Ice compression as directed follow-up ENT call in a.m. to schedule appointment return as needed as discussed
== END 2018-10-25 00:11 | disposition home or self-care (01) ==
LOC: MW.ED 23:32
DX: S00.432A Contusion of left ear, initial encounter (principal); F17.210 Nicotine dependence, cigarettes, uncomplicated; W22.8XXA Striking against or struck by other objects, initial encounter
CPT/HCPCS: 99282

== ENCOUNTER 2019-04-25 19:53 | Emergency (ER) | payer BC, OTHER ==
[2019-04-25] MEDS ORDERED: Sodium Chloride 0.9% 1,000 ML IV ONE (20:16)
[2019-04-25] MEDS ORDERED: Pantoprazole 80 MG in Sodium Chloride 0.9% 20 ML IVPUSH ONE (20:16)
[2019-04-25] MEDS ORDERED: Sodium Chloride 0.9% 2.5 ML Syringe FLUSH PRN (20:16)
[2019-04-25] MEDS ORDERED: Alum Hydrox/Mag Hydrox/Simeth 15 ML, Metoclopramide 5 MG, Lidocaine 2% 5 ML PO ONE ×3 (20:16)
[2019-04-25] MEDS ORDERED: Sodium Chloride 0.9% 10 ML Syringe FLUSH PRN (20:16)
--- NOTE | 2019-04-25 20:20 | EDM.PDOC ---
ED HPI GENERAL MEDICAL PROBLEM - General Chief Complaint: Chest Pain Stated Complaint: CHEST PAIN Time Seen by Provider: 04/25/19 20:07 - History of Present Illness INITIAL COMMENTS - FREE TEXT/NARRATIVE: HISTORY AND PHYSICAL: History of present illness: The patient is a 38-year-old female with no significant cardiac or pulmonary history who had a cholecystectomy performed 2 years ago and also had an episode of pancreatitis after her gallbladder was removed and who presents with epigastric pain that radiates to the substernal area that has been occurring on and off for the last 1 week. She says that tonight is her fourth episode of this discomfort and the first episode was the worst because it lasted the longest and the 2 subsequent episodes were more brief and then tonight she was concerned because it keeps recurring. The patient has not been vomiting or having diarrhea and does not have black or bloody stools. The patient does not have a history of food intolerance except when she eats too much fatty foods after her gallbladder was removed so she is very careful to watch what she eats. The patient does drink wine 1 to 2 glasses nightly but her last glass of wine she tells me was about 3 days ago. The patient has not had any upper respiratory symptoms such as cough fever or runny nose and she has no back or flank pain no urinary complaints. This evening when it recurred she was just doing normal activities and she did not take any [id number] preps such as Mylanta or Tums to help. She has no history of acid reflux or peptic ulcer disease and she has no history of heartburn. Currently in the ED she tells me it is in her epigastrium and is going to her lower sternum and she has no lower abdominal pain or back pain. She does smoke cigarettes but she does not take control and she has had a bilateral tubal ligation. She has no significant cardiac family disease Review of systems: As per history of present illness and below otherwise all systems reviewed and negative. Past medical history: As per history of present illness and as reviewed below otherwise noncontributory. Surgical history: As per history of present illness and as reviewed below otherwise noncontributory. Social history: No reported history of drug or alcohol abuse. Family history: As per history of present illness and as reviewed below otherwise noncontributory. Physical exam: General: Well-developed well-nourished thin female who is nontoxic and vital signs are noted by me HEENT: Atraumatic, normocephalic, pupils reactive, negative for conjunctival pallor or scleral icterus, mucous membranes moist, throat clear, neck supple, nontender, trachea midline. Lungs: Clear to auscultation, breath sounds equal bilaterally, chest nontender. Heart: S1S2, regular rate and rhythm no overt murmurs Abdomen: Soft, nondistended, with mild epigastric tenderness and left upper quadrant tenderness on palpation without rebound or guarding and the remainder of the abdomen is nontender, negative for masses or hepatosplenomegaly. Negative for costovertebral tenderness. Pelvis: Stable nontender. Genitourinary: Deferred. Rectal: Deferred. Extremities: Atraumatic, negative for cords or calf pain. Neurovascular unremarkable. Neuro: Awake, alert, oriented. Cranial nerves II through XII unremarkable. Cerebellum unremarkable. Motor and sensory unremarkable throughout. Exam nonfocal. Diagnostics: EKG abdominal x-rays with chest, CBC CMP amylase lipase alcohol level troponin UA with reflex urine culture CT of the abdomen and pelvis Therapeutics: IV O2 monitor Protonix GI cocktail Patient and at bedside are aware of all testing results and the patient is feeling much improved. I strongly advise close follow-up with her provider at [facility] and we will place her on Protonix and have advised on dietary restrictions and reduction of wine consumption Impression: Epigastric and lower chest pain improved Leukocytosis UTI Definitive disposition and diagnosis as appropriate pending reevaluation and review of above. Epigastric Pain Score (Numeric/FACES): 9 - Related Data Allergies Allergy/AdvReac Type Severity Reaction Status Date / Time No Known Allergies Allergy Verified 04/25/19 19:59 Home Meds: Home Meds . 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: Reports: , Other (See Below) Other [employer]GER [employer] History: uterine biopsy Musculoskeletal History: Reports: Arthritis, Back Pain, Chronic Neurological History: Reports: Concussion, Migraines Other Neuro History: states migraines if no caffeine Psychiatric History: Reports: Anxiety Endocrine/Metabolic History: Reports: None Hematologic History: Reports: Blood Transfusion(s), Iron Deficiency Immunologic History: Reports: None Oncologic (Cancer) History: Reports: None Dermatologic History: Reports: None - Infectious Disease History Infectious Disease History: Reports: Chicken Pox - Past Surgical History Head Surgeries/Procedures: Reports: None HEENT Surgical History: Reports: None Cardiovascular Surgical History: Reports: None Respiratory Surgical History: Reports: None GI Surgical History: Reports: Cholecystectomy, EGD Female Surgical History: Reports: Section, Tubal Ligation Endocrine Surgical History: Reports: None Neurological Surgical History: Reports: None Musculoskeletal Surgical History: Reports: None Oncologic Surgical History: Reports: None Dermatological Surgical History: Reports: None Social & Family History - Family History Family Medical History: Noncontributory - Tobacco Use Smoking Status *Q: Current Every Day Smoker Years of Tobacco use: 20 Packs/Tins Daily: 0.5 - Caffeine Use Caffeine Use: Reports: Coffee, Tea - Recreational Drug Use Recreational Drug Use: No ED ROS GENERAL - Review of Systems Review Of Systems: Comprehensive ROS is negative, except as noted in HPI. ED EXAM, GENERAL - Physical Exam Exam: See Below (See dictation) Course - Vital Signs Last Recorded V/S: Last Vital Signs Temp 36.3 C 04/25/19 22:41 Pulse 68 04/25/19 22:41 Resp 20 04/25/19 22:41 BP 95/47 L 04/25/19 22:41 Pulse Ox 97 04/25/19 22:41 - Orders/Labs/Meds Orders: Active Orders 24 hr Category Date Time Status Cardiac Monitoring [RC] . DIRECTED Care 04/25/19 20:15 Active EKG Documentation Completion [RC] STAT Care 04/25/19 20:15 Active Oxygen Therapy, ED [RC] ASDIRECTED Care 04/25/19 20:15 Active Pulse Oximetry [RC] ASDIRECTED Care 04/25/19 20:15 Active CULTURE URINE [RM] Stat Lab 04/25/19 20:20 Received Sodium Chloride 0.9% [Saline Flush] Med 04/25/19 20:16 Active 10 ml FLUSH ASDIRECTED PRN Sodium Chloride 0.9% [Saline Flush] Med 04/25/19 20:16 Active 2.5 ml FLUSH ASDIRECTED PRN Saline Lock Insert [OM.PC] Stat Oth 04/25/19 20:15 Ordered Medication Orders Sodium Chloride (Saline Flush) 10 ml FLUSH ASDIRECTED PRN PRN Reason: Keep Vein Open Last Admin: 04/25/19 20:39 Dose: 10 ml Sodium Chloride (Saline Flush) 2.5 ml FLUSH ASDIRECTED PRN PRN Reason: Keep Vein Open Last Admin: 04/25/19 20:39 Dose: 2.5 ml Labs: Laboratory Tests 04/25/19 04/25/19 04/25/19 Range/Units 20:20 20:20 20:20 WBC 14.51 H (4.0-11.0) K/uL RBC 4.76 (4.30-5.90) M/uL Hgb 11.1 L (12.0-16.0) g/dL Hct 35.3 L (36.0-46.0) % MCV 74.2 L (80.0-98.0) fL MCH 23.3 L (27.0-32.0) pg MCHC 31.4 (31.0-37.0) g/dL RDW Std Deviation 42.7 (28.0-62.0) fl RDW Coeff of Huyen 16 H (11.0-15.0) % Plt Count 260 (150-400) K/uL MPV 9.80 (7.40-12.00) fL Neut % (Auto) 81.6 H (48.0-80.0) % Lymph % (Auto) 12.9 L (16.0-40.0) % [place] % (Auto) 5.2 (0.0-15.0) % Eos % (Auto) 0.2 (0.0-7.0) % Baso % (Auto) 0.1 (0.0-1.5) % Neut # (Auto) 11.8 H (1.4-5.7) K/uL Lymph # (Auto) 1.9 (0.6-2.4) K/uL [place] # (Auto) 0.8 (0.0-0.8) K/uL Eos # (Auto) 0.0 (0.0-0.7) K/uL Baso # (Auto) 0.0 (0.0-0.1) K/uL Nucleated RBC % 0.0 /100WBC Nucleated RBCs # 0 K/uL Sodium 140 (136-145) mmol/L Potassium 3.6 (3.5-5.1) mmol/L Chloride 104 (98-107) mmol/L Carbon Dioxide 23.4 (21.0-32.0) mmol/L BUN 15 (7.0-18.0) mg/dL Creatinine 0.6 (0.6-1.0) mg/dL Est Cr Clr Drug Dosing 107.63 mL/min Estimated GFR (MDRD) > 60.0 ml/min Glucose 104 (74-106) mg/dL Calcium 8.7 (8.5-10.1) mg/dL Total Bilirubin 0.2 (0.2-1.0) mg/dL AST 12 L (15-37) IU/L ALT 16 (14-63) IU/L Alkaline Phosphatase 62 (46-116) U/L Troponin I < 0.050 (0.000-0.056) ng/mL Total Protein 8.1 (6.4-8.2) g/dL Albumin 4.1 (3.4-5.0) g/dL Globulin 4.0 (2.6-4.0) g/dL Albumin/Globulin Ratio 1.0 (0.9-1.6) Amylase 56 (25-115) U/L Lipase 124 (73-393) U/L Urine Color YELLOW Urine Appearance CLOUDY Urine pH 6.0 (5.0-8.0) Ur Specific [place] 1.025 (1.001-1.035) Urine Protein NEGATIVE (NEGATIVE) mg/dL Urine Glucose (UA) NEGATIVE (NEGATIVE) mg/dL Urine Ketones NEGATIVE (NEGATIVE) mg/dL Urine Occult Blood NEGATIVE (NEGATIVE) Urine Nitrite NEGATIVE (NEGATIVE) Urine Bilirubin NEGATIVE (NEGATIVE) Urine Urobilinogen 0.2 (<2.0) EU/dL Ur Leukocyte Esterase MODERATE H (NEGATIVE) Urine RBC 0-1 (0-2/HPF) Urine WBC 40-50 (0-5/HPF) Ur Epithelial Cells RARE (NONE-FEW) Urine Bacteria FEW (NEGATIVE) Urine Mucus LIGHT (NONE-MOD) Ethyl Alcohol <3 mg/dL Meds: Medications Generic Name Dose Route Start Last Admin Trade Name Freq PRN Reason Stop Dose Admin Sodium Chloride 10 ml 04/25/19 20:16 04/25/19 20:39 Saline Flush FLUSH 10 ml ASDIRECTED PRN Administration Keep Vein Open Sodium Chloride 2.5 ml 04/25/19 20:16 04/25/19 20:39 Saline Flush FLUSH 2.5 ml ASDIRECTED PRN Administration Keep Vein Open Discontinued Medications Generic Name Dose Route Start Last Admin Trade Name Freq PRN Reason Stop Dose Admin Al Hydroxide/Mg Hydroxide 15 0 ml 04/25/19 20:16 04/25/19 20:39 ml/ Metoclopramide HCl 5 mg/ PO 04/25/19 20:17 1 each Lidocaine HCl 5 ml ONETIME ONE Administration Pantoprazole Sodium 80 mg/ 20 mls @ 420 mls/hr 04/25/19 20:16 04/25/19 20:38 Sodium Chloride IVPUSH 04/25/19 20:18 420 mls/hr ONETIME ONE Administration Sodium Chloride 1,000 mls @ 999 mls/hr 04/25/19 20:16 04/25/19 20:36 Normal Saline IV 04/25/19 21:16 999 mls/hr STAT ONE Administration Iopamidol 100 ml 04/25/19 22:00 04/25/19 22:18 Isovue-370 (76%) IVPUSH 04/25/19 22:01 100 ml ONETIME STA Administration Departure - Departure Time of Disposition: 22:54 Disposition: Home, Self-Care 01 Condition: Good Clinical Impression: Epigastric abdominal pain - Discharge Information Referrals: Nelida Garcia MANA[employer] [Primary Care Provider] - Forms: ED Department Discharge Additional Instructions: The following information is given to patients seen in the emergency department who are being discharged to home. This information is to outline your options for follow-up care. We provide all patients seen in our emergency department with a follow-up referral. The need for follow-up, as well as the timing and circumstances, are variable depending upon the specifics of your emergency department visit. If you don't have a primary care physician on staff, we will provide you with a referral. We always advise you to contact your personal physician following an emergency department visit to inform them of the circumstance of the visit and for follow-up with them and/or the need for any referrals to a consulting specialist. The emergency department will also refer you to a specialist when appropriate. This referral assures that you have the opportunity for followup care with a specialist. All of these measure are taken in an effort to provide you with optimal care, which includes your followup. Under all circumstances we always encourage you to contact your private physician who remains a resource for coordinating your care. When calling for followup care, please make the office aware that this follow-up is from your recent emergency room visit. If for any reason you are refused follow-up, please contact the emergency department at and ask to speak to the emergency department charge nurse. [address] [place] [address] Please watch your diet as we discussed and start the Protonix and Cipro antibiotic that you have been given today for your symptoms and for your early UTI. Please connect with your provider in the clinic for reevaluation and further care and return to ER as needed and as discussed Sepsis Event Note - Evaluation Sepsis Screening Result: No Definite Risk - Focused Exam Vital Signs: Vital Signs Temp Pulse Resp BP Pulse Ox 04/25/19 22:41 36.3 C 68 20 95/47 L 97 04/25/19 19:59 36.1 C 80 17 107/49 L 99 Date Exam was Performed: 04/25/19 Time Exam was Performed: 22:53 - My Orders Last 24 Hours: My Active Orders 04/25/19 20:15 Cardiac Monitoring [RC] . DIRECTED EKG Documentation Completion [RC] STAT Oxygen Therapy, ED [RC] ASDIRECTED Pulse Oximetry [RC] ASDIRECTED Saline Lock Insert [OM.PC] Stat 04/25/19 20:16 Sodium Chloride 0.9% [Saline Flush] 10 ml FLUSH ASDIRECTED PRN Sodium Chloride 0.9% [Saline Flush] 2.5 ml FLUSH ASDIRECTED PRN 04/25/19 20:20 CULTURE URINE [RM] Stat - Assessment/Plan Last 24 Hours: My Active Orders 04/25/19 20:15 Cardiac Monitoring [RC] . DIRECTED EKG Documentation Completion [RC] STAT Oxygen Therapy, ED [RC] ASDIRECTED Pulse Oximetry [RC] ASDIRECTED Saline Lock Insert [OM.PC] Stat 04/25/19 20:16 Sodium Chloride 0.9% [Saline Flush] 10 ml FLUSH ASDIRECTED PRN Sodium Chloride 0.9% [Saline Flush] 2.5 ml FLUSH ASDIRECTED PRN 04/25/19 20:20 CULTURE URINE [] Stat
[2019-04-25 21:10] LABS: BLOOD UREA NITROGEN,BUN 15 mg/dL (7.0-18.0); CARBON DIOXIDE,CO2 23.4 mmol/L (21.0-32.0); CHLORIDE,CL 104 mmol/L (98-107); GLUCOSE RANDOM 104 mg/dL (74-106); LIPASE 124 U/L (73-393); POTASSIUM,K 3.6 mmol/L (3.5-5.1); SODIUM,NA 140 mmol/L (136-145)
--- NOTE | 2019-04-25 21:28 | CR ---
INDICATION: Epigastric pain, shortness of breath TECHNIQUE: Chest 1 view. COMPARISON: None FINDINGS: Cardiovascular and mediastinum: Heart size and vasculature are normal in caliber and appearance. Mediastinum is within normal limits. Lungs and pleural space: Lungs are clear. No sign of infiltrate or mass. No sign of pleural effusion. No pneumothorax. Bones and soft tissues: No significant findings. Abdomen: Nonobstructive bowel gas pattern. Surgical clips right upper quadrant. IMPRESSION: Unremarkable chest and abdomen. Dictated by Bam Martinez MD @ 04/25/2019 9:25:54 PM Dictated by: Bam Martinez MD @ 04/25/2019 21:26:04 (Electronically Signed)
[2019-04-25] MEDS ORDERED: Iopamidol 755 Mg/ML 100 ML Bottle IVPUSH STA (22:00)
--- NOTE | 2019-04-25 22:43 | CT ---
Indication: Upper abdominal pain Technique: Contrast enhanced axial CT imaging through the abdomen and pelvis. 100 mL Isovue 370 contrast agent was administered intravenously. Sagittal and coronal reconstructions are provided. Comparison: CT abdomen pelvis with contrast 10/19/2017 Findings: There is no significant abnormality of the liver, spleen, pancreas, adrenal glands, and kidneys. Cholecystectomy clips are noted. The IVC and portal vein are pain. There is normal caliber of the abdominal aorta. The stomach and duodenum are unremarkable. There are no abnormally dilated small bowel loops. The appendix is noninflamed. There is no colonic wall thickening. No inflammatory changes are demonstrated in the mesentery. There is no free intraperitoneal fluid. There is no pneumoperitoneum. There is no abdominal lymphadenopathy. The visualized osseous structures are unremarkable. The included lung bases are clear. Impression: No acute process demonstrated in the abdomen and pelvis. Please note that all CT scans at this facility use dose modulation, iterative reconstruction, and/or weight-based dosing when appropriate to reduce radiation dose to as low as reasonably achievable. Dictated by Lloyd Che MD @ Apr 25 2019 10:41PM Signed by Dr. Lloyd Che @ Apr 25 2019 10:41PM
== END 2019-04-25 23:20 | disposition home or self-care (01) ==
LOC: MW.ED 19:53
DX: R10.13 Epigastric pain (principal); R07.9 Chest pain, unspecified; N39.0 Urinary tract infection, site not specified; D72.829 Elevated white blood cell count, unspecified; F17.210 Nicotine dependence, cigarettes, uncomplicated; Z90.49 Acquired absence of other specified parts of digestive tract; Z98.51 Tubal ligation status
CPT/HCPCS: 74022; 74177; 80053; 80320; 81001; 82150; 83690; 84484; 85025; 87086; 87088; 87186; 93005; 96361; 96374; 99285; A9270; C9113; J7030; Q9967; 99284; G0480

== ENCOUNTER 2019-08-29 04:30 | Emergency (ER) | payer MEDICAID, OTHER ==
[2019-08-29] MEDS ORDERED: Alum Hydrox/Mag Hydrox/Simeth 15 ML, Lidocaine 2% 5 ML PO ONE ×2 (04:45)
--- NOTE | 2019-08-29 04:50 | EDM.PDOC ---
ED HPI GENERAL MEDICAL PROBLEM - General Chief Complaint: Gastrointestinal Problem Stated Complaint: CHEST PAIN, ABDOMINAL PAIN, BLOATING Time Seen by Provider: 08/29/19 04:31 Source of Information: Reports: Patient History Limitations: Reports: No Limitations - History of Present Illness INITIAL COMMENTS - FREE TEXT/NARRATIVE: 39-year-old female with a past medical history of pancreatitis, status post cholecystectomy presenting with epigastric abdominal pain and bloating. Reports a 2-day history of abdominal bloating. This evening, around 11 PM she woke up with epigastric abdominal pain described as "sharp", radiating up into the substernal area of the chest. Pain is intermittent, and at times she is totally pain-free. Nothing makes the pain better or worse, she has not experienced this in the past. No self treatment prior to arrival, no other complaints. upper abdominal Pain Score (Numeric/FACES): 7 - Related Data Allergies Allergy/AdvReac Type Severity Reaction Status Date / Time No Known Allergies Allergy Verified 08/29/19 04:36 Home Meds: Home Meds Ascorbic Acid [Vitamin C] 1 tab PO DAILY 08/29/19 [History] Iron 1 tab PO DAILY 08/29/19 [History] Past Medical History HEENT History: Reports: Other (See Below) Other HEENT History: wears glasses Cardiovascular History: Reports: Heart Murmur Respiratory History: Reports: Asthma, Other (See Below) Other Respiratory History: states "asthma comes in the form of heartburn" Gastrointestinal History: Reports: GERD, Pancreatitis Other Gastrointestinal History: cholecystectomy Genitourinary History: Reports: None 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: , Other (See Below) Other RUBBER MIXER History: uterine biopsy Musculoskeletal History: Reports: Arthritis, Back Pain, Chronic Neurological History: Reports: Concussion, Migraines Other Neuro History: states migraines if no caffeine Psychiatric History: Reports: Anxiety Endocrine/Metabolic History: Reports: None Hematologic History: Reports: Blood Transfusion(s), Iron Deficiency Immunologic History: Reports: None Oncologic (Cancer) History: Reports: None Dermatologic History: Reports: None - Infectious Disease History Infectious Disease History: Reports: None - Past Surgical History Head Surgeries/Procedures: Reports: None HEENT Surgical History: Reports: None Cardiovascular Surgical History: Reports: None Respiratory Surgical History: Reports: None GI Surgical History: Reports: Cholecystectomy, EGD Female Surgical History: Reports: Section, Tubal Ligation Endocrine Surgical History: Reports: None Neurological Surgical History: Reports: None Musculoskeletal Surgical History: Reports: None Oncologic Surgical History: Reports: None Dermatological Surgical History: Reports: None Social & Family History - Family History Family Medical History: Noncontributory - Tobacco Use Smoking Status *Q: Current Every Day Smoker Years of Tobacco use: 20 Packs/Tins Daily: 1 - Caffeine Use Caffeine Use: Reports: Tea - Recreational Drug Use Recreational Drug Use: No ED ROS GENERAL - Review of Systems Review Of Systems: See Below Constitutional: Denies: Fever HEENT: Reports: No Symptoms Respiratory: Denies: Shortness of Breath Cardiovascular: Denies: Chest Pain GI/Abdominal: Reports: Abdominal Pain. Denies: Black Stool, Bloody Stool, Constipation, Diarrhea, Distension, Hematochezia, Nausea, Vomiting : Denies: Dysuria, Flank Pain, Hematuria Musculoskeletal: Denies: Back Pain Skin: Reports: No Symptoms Neurological: Denies: Headache Psychiatric: Reports: No Symptoms Hematologic/Lymphatic: Reports: No Symptoms Immunologic: Reports: No Symptoms ED EXAM, GI/ABD - Physical Exam Exam: See Below Text/Narrative:: Vital signs reviewed. Nursing notes reviewed. Constitutional: Awake, alert, non-distressed. Head: Normocephalic, atraumatic. Eyes: EOMI, conjunctiva normal, no discharge, no scleral icterus. Ears, Nose, Throat: External ears and ears normal, moist oral mucosa. Cardiovascular: 2+ radial pulse, capillary refill less than 2 seconds. RRR, no M/R/G Pulmonary: normal work of breathing, no accessory muscle use. CTA BL Abdomen/GI: Soft, very minimal epigastric tenderness, nondistended, no guarding or rigidity, no masses. No organomegaly. Musculoskeletal: No deformities. Integumentary: Appropriate color for ethnicity, warm, dry, no pallor or jaundice , no rash. Neurologic: Alert, answering questions appropriately, normal speech, no facial droop, moving all extremities well. Psychiatric: Appropriate mood and affect, normal thought process. EKG INTERPRETATION EKG Interpretation Comments: 12-Lead ECG Interpretation Acquired: 4:49 AM Rhythm: Sinus rhythm Rate: 63 bpm Valentine: Normal Intervals: Normal Ectopy: None Ischemic Changes: None apparent RV Strain: No obvious RV strain pattern. ST Segments/T-Waves: No notable changes Interpretation: Unremarkable Course - Vital Signs Text/Narrative:: Patient hemodynamically stable, afebrile, well-appearing, looks nontoxic. Differential diagnosis includes but is not limited to: gastritis, GERD, peptic ulcer disease, pancreatitis, acute coronary syndrome, nonspecific abdominal pain , AAA, acute hepatitis, de suzy stone, etc. 0450: Patient appears very comfortable and abdomen is soft and very minimally tender. Plan for GI cocktail, labs, EKG, symptomatic reassessment. 0523: Pain not much improved after GI cocktail, will order acetaminophen and ibuprofen. Wells PE score 0, negative by PERC criteria. 0532 - CBC shows mild microcytic anemia. Electrolytes and renal function are reassuring. Hepatic markers within normal limits. Negative lipase. Negative troponin. Discussed CT imaging with the patient, and she wants to proceed with a CT scan of the abdomen/pelvis. test negative. 0641: Patient resting comfortably, awaiting radiology read of CT scan. 0705: CT scan negative for pathology to explain the patient's symptoms. She will be discharged home. Plan for symptomatic treatment with [id number] Tylenol, Maalox max, Prilosec, and primary care follow-up. Plan: Patient is stable to discharge home with outpatient primary care follow- up. Strict emergency department return precautions were provided, patient indicated understanding. All questions were answered prior to departure. Discharged in good condition. Last Recorded V/S: Last Vital Signs Temp 35.9 C L 08/29/19 04:37 Pulse 69 08/29/19 04:37 Resp 17 08/29/19 04:37 BP 107/72 08/29/19 04:37 Pulse Ox 99 08/29/19 04:37 - Orders/Labs/Meds Orders: Active Orders 24 hr Category Date Time Status EKG 12 Lead [EKG Documentation Completion] [RC] STAT Care 08/29/19 04:45 Active Labs: Laboratory Tests 08/29/19 08/29/19 08/29/19 Range/Units 04:55 04:55 04:55 WBC 8.67 (4.0-11.0) K/uL RBC 4.35 (4.30-5.90) M/uL Hgb 9.5 L (12.0-16.0) g/dL Hct 32.9 L (36.0-46.0) % MCV 75.6 L (80.0-98.0) fL MCH 21.8 L (27.0-32.0) pg MCHC 28.9 L (31.0-37.0) g/dL RDW Std Deviation 47.0 (28.0-62.0) fl RDW Coeff of Huyen 17 H (11.0-15.0) % Plt Count 303 (150-400) K/uL MPV 9.10 (7.40-12.00) fL Neut % (Auto) 57.8 (48.0-80.0) % Lymph % (Auto) 33.4 (16.0-40.0) % [place] % (Auto) 6.2 (0.0-15.0) % Eos % (Auto) 2.1 (0.0-7.0) % Baso % (Auto) 0.5 (0.0-1.5) % Neut # (Auto) 5.0 (1.4-5.7) K/uL Lymph # (Auto) 2.9 H (0.6-2.4) K/uL [place] # (Auto) 0.5 (0.0-0.8) K/uL Eos # (Auto) 0.2 (0.0-0.7) K/uL Baso # (Auto) 0.0 (0.0-0.1) K/uL Nucleated RBC % 0.0 /100WBC Nucleated RBCs # 0 K/uL Sodium 141 (136-145) mmol/L Potassium 3.9 (3.5-5.1) mmol/L Chloride 105 (98-107) mmol/L Carbon Dioxide 27.0 (21.0-32.0) mmol/L BUN 10 (7.0-18.0) mg/dL Creatinine 0.8 (0.6-1.0) mg/dL Est Cr Clr Drug Dosing 79.52 mL/min Estimated GFR (MDRD) > 60.0 ml/min Glucose 102 (74-106) mg/dL Calcium 8.0 L (8.5-10.1) mg/dL Total Bilirubin 0.1 L (0.2-1.0) mg/dL AST 12 L (15-37) IU/L ALT 17 (14-63) IU/L Alkaline Phosphatase 62 (46-116) U/L Troponin I < 0.050 (0.000-0.056) ng/mL Total Protein 6.9 (6.4-8.2) g/dL Albumin 3.4 (3.4-5.0) g/dL Globulin 3.5 (2.6-4.0) g/dL Albumin/Globulin Ratio 1.0 (0.9-1.6) Lipase 141 (73-393) U/L HCG, Qual NEGATIVE (NEG) Meds: Medications Discontinued Medications Generic Name Dose Route Start Last Admin Trade Name Yaniv PRN Reason Stop Dose Admin Acetaminophen 1,000 mg 08/29/19 05:23 08/29/19 05:29 Tylenol Extra Strength PO 08/29/19 05:24 1,000 mg ONETIME ONE Administration Al Hydroxide/Mg Hydroxide 15 0 ml 08/29/19 04:45 08/29/19 04:49 ml/ Lidocaine HCl 5 ml PO 08/29/19 04:46 1 each ONETIME ONE Administration Ibuprofen 400 mg 08/29/19 05:23 08/29/19 05:28 Motrin PO 08/29/19 05:24 400 mg ONETIME ONE Administration Iopamidol 85 ml 08/29/19 06:19 Isovue-300 (61%) IVPUSH 08/29/19 06:20 ONETIME STA Iopamidol 85 ml 08/29/19 06:22 08/29/19 06:23 Isovue Multipack-370 (76%) IVPUSH 08/29/19 06:23 85 ml ONETIME STA Administration Iopamidol 85 ml 08/29/19 06:28 08/29/19 06:29 Isovue Multipack-370 (76%) IVPUSH 08/29/19 06:29 85 ml ONETIME STA Administration Departure - Departure Time of Disposition: 07:06 Disposition: Home, Self-Care 01 Condition: Good Clinical Impression: Epigastric abdominal pain - Discharge Information *PRESCRIPTION DRUG MONITORING PROGRAM REVIEWED*: Not Applicable *COPY OF PRESCRIPTION DRUG MONITORING REPORT IN PATIENT MOISES: Not Applicable Instructions: Abdominal Pain, Adult, Pain Without a Known Cause Referrals: Nelida Garcia MANAGER REPORT [Primary Care Provider] - 3 Days (For follow-up of symptoms) Forms: ED Department Discharge Additional Instructions: Thank you for choosing the [facility] emergency department in [place] for your medical needs today. It was a pleasure caring for you. You were seen in the emergency department for abdominal pain. Your blood work and scans were normal. We do not have an obvious explanation for your symptoms , but we do not see any evidence of an emergency medical condition. I encourage you to follow-up with your primary medical clinic in the next few days. In the meantime, I recommend [id number] acetaminophen and ibuprofen for pain along with Maalox max and omeprazole. Please return the emergency department immediately if your symptoms worsen or if you feel worse. The following information is given to patients seen in the emergency department who are being discharged. This information is to outline your options for follow -up care. We provide all patients seen in our emergency department with a follow -up referral. The need for follow-up, as well as the timing and circumstances, are variable depending upon the specifics of your emergency department visit. If you don't have a primary care physician on staff, we will provide you with a referral. We always advise you to contact your personal physician following an emergency department visit to inform them of the circumstance of the visit and for follow-up with them and/or the need for any referrals to a consulting specialist. The emergency department will also refer you to a specialist when appropriate. This referral assures that you have the opportunity for follow-up care with a specialist. All of these measure are taken in an effort to provide you with optimal care, which includes your follow-up. Under all circumstances we always encourage you to contact your private physician who remains a resource for coordinating your care. When calling for follow-up care, please make the office aware that this follow-up is from your recent emergency room visit. If for any reason you are refused follow-up, please contact the [facility] Emergency Department at and asked to speak to the emergency department charge nurse. If you do not have a primary care physician that is caring for you, you can contact these clinics below to set up an appointment to establish care: [facility] - Primary Care [address] [place] [id number] [facility] [address] [place] [id number] Sepsis Event Note - Evaluation Sepsis Screening Result: No Definite Risk - Focused Exam Vital Signs: Vital Signs Temp Pulse Resp BP Pulse Ox 08/29/19 04:37 35.9 C L 69 17 107/72 99 Date Exam was Performed: 08/29/19 Time Exam was Performed: 06:59 - My Orders Last 24 Hours: My Active Orders 08/29/19 04:45 EKG 12 Lead [EKG Documentation Completion] [RC] STAT - Assessment/Plan Last 24 Hours: My Active Orders 08/29/19 04:45 EKG 12 Lead [EKG Documentation Completion] [RC] STAT
[2019-08-29] MEDS ORDERED: Ibuprofen 400 MG Tab PO ONE (05:23)
[2019-08-29] MEDS ORDERED: Acetaminophen 500 MG Tab PO ONE (05:23)
[2019-08-29 05:24] LABS: BLOOD UREA NITROGEN,BUN 10 mg/dL (7.0-18.0); CHLORIDE,CL 105 mmol/L (98-107); GLUCOSE RANDOM 102 mg/dL (74-106); LIPASE 141 U/L (73-393); POTASSIUM,K 3.9 mmol/L (3.5-5.1); SODIUM,NA 141 mmol/L (136-145)
[2019-08-29] MEDS ORDERED: Iopamidol 612 MG/ML 100 ML Bottle IVPUSH STA (06:19)
[2019-08-29] MEDS ORDERED: Iopamidol 755 MG/ML 500 ML Multipack Bottle IVPUSH STA ×3 (06:22→07:21)
--- NOTE | 2019-08-29 06:58 | CT ---
INDICATION: Abdominal pain and history of pancreatitis. TECHNIQUE: Contiguous axial CT images of the abdomen and pelvis are acquired after the uneventful administration of IV contrast. Coronal and sagittal reformations generated reviewed. COMPARISON: 04/25/2019. FINDINGS: There is a focal fatty change adjacent to the falciform ligament. Unchanged subcentimeter low-attenuation lesions in segment 4A and 6 are likely small benign cyst but too small to definitively characterize. No additional liver lesions are identified. Patent hepatic vasculature no biliary dilation. Status post cholecystectomy. Spleen, adrenal glands, and bilateral kidneys are unremarkable. The appendix is normal. No bowel wall thickening or evidence of bowel obstruction. Normal caliber abdominal aorta. No aneurysm or significant atherosclerotic disease. Iliac veins and IVC are unremarkable. There is a small amount of fluid in the endometrial canal. There is a tampon in the vagina. Dilated left gonadal vein is noted which extends into the pelvis where there are multiple varicosities in the left adnexal region. Urinary bladder is unremarkable. No pneumoperitoneum or free fluid. The left ovary is normal. Two subcentimeter cysts are noted in the right ovary, likely physiologic. Visualized portions of the lower chest demonstrate no nodules or opacities. The heart size is normal. No acute or aggressive osseous abnormalities are identified. IMPRESSION: 1. Small cysts in right ovary is likely physiologic. This could be a source of pain. No other cause of acute abdominal pain identified. 2. Dilated left gonadal vein extend to fill varicosities in the left adnexal region. This would be consistent with a clinical diagnosis of pelvic congestion syndrome. Please note that all CT scans at this facility use dose modulation, iterative reconstruction, and/or weight-based dosing when appropriate to reduce radiation dose to as low as reasonably achievable. Dictated by Michael Mcgarry MD @ Aug 29 2019 6:47AM Signed by Dr. Michael Mcgarry @ Aug 29 2019 6:57AM
== END 2019-08-29 07:34 | disposition home or self-care (01) ==
LOC: MW.ED 04:30
DX: R10.13 Epigastric pain (principal); F17.210 Nicotine dependence, cigarettes, uncomplicated; E61.1 Iron deficiency; Z79.899 Other long term (current) drug therapy
CPT/HCPCS: 36415; 74177; 80053; 83690; 84484; 84703; 85025; 93005; 99284; A9270; Q9967

== ENCOUNTER 2019-09-12 19:37 | Emergency (ER) | payer SELFPAY ==
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
== END 2019-09-12 20:35 | disposition home or self-care (01) ==
LOC: MW.ED 19:37
DX: H72.92 Unspecified perforation of tympanic membrane, left ear (principal); M19.90 Unspecified osteoarthritis, unspecified site; Z79.899 Other long term (current) drug therapy
CPT/HCPCS: 99282

== ENCOUNTER 2019-09-30 11:36 | Emergency (ER) | payer SELFPAY ==
--- NOTE | 2019-09-30 12:23 | EDM.PDOC ---
ED HPI GENERAL MEDICAL PROBLEM - General Chief Complaint: Lower Extremity Injury/Pain Stated Complaint: BUMPS ON LT HIP Time Seen by Provider: 09/30/19 11:39 - History of Present Illness INITIAL COMMENTS - FREE TEXT/NARRATIVE: 39-year-old female presenting with 1 year of left hip pain. Patient reports an aching pain that worsens with direct pressure like when she lays on it trying to sleep and worsens sometimes with walking. It does very occasionally shoot down into the lateral leg but is primarily focused in the left hip. It is currently moderate. She does have some lower back pain as well. 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 She has been taking Tylenol and ibuprofen for the symptoms they provide some interim mitten relief but patient is concerned about the idea of continuing to take it. No fevers no chills patient did have an injury just over a year ago prior to this pain starting she had a fall and landed on the left hip. She also closed the car door with her hip and that caused severe pain. She is also concerned about an abnormal swelling in the lateral hip just distal to the greater trochanter. It is minimally tender but is significantly tender with direct pressure when she is laying on it. left hip Pain Score (Numeric/FACES): 2 - Related Data Allergies Allergy/AdvReac Type Severity Reaction Status Date / Time No Known Allergies Allergy Verified 09/30/19 12:14 Home Meds: Home Meds . 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: , Other (See Below) Other FOOD PREPARATION SUPERVISOR History: uterine biopsy Musculoskeletal History: Reports: Arthritis, Back Pain, Chronic Neurological History: Reports: Concussion, Migraines Other Neuro History: states migraines if no caffeine Psychiatric History: Reports: Anxiety Endocrine/Metabolic History: Reports: None Hematologic History: Reports: Blood Transfusion(s), Iron Deficiency Immunologic History: Reports: None Oncologic (Cancer) History: Reports: None Dermatologic History: Reports: None - Infectious Disease History Infectious Disease History: Reports: Chicken Pox - Past Surgical History Head Surgeries/Procedures: Reports: None HEENT Surgical History: Reports: None Cardiovascular Surgical History: Reports: None Respiratory Surgical History: Reports: None GI Surgical History: Reports: Cholecystectomy, EGD Female Surgical History: Reports: Section, Tubal Ligation Endocrine Surgical History: Reports: None Neurological Surgical History: Reports: None Musculoskeletal Surgical History: Reports: None Oncologic Surgical History: Reports: None Dermatological Surgical History: Reports: None Social & Family History - Family History Family Medical History: Noncontributory - Caffeine Use Caffeine Use: Reports: Tea Review of Systems - Review of Systems Review Of Systems: See Below Constitutional: Reports: No Symptoms Eyes: Reports: No Symptoms Ears: Reports: No Symptoms Nose: Reports: No Symptoms Mouth/Throat: Reports: No Symptoms Respiratory: Reports: No Symptoms Cardiovascular: Reports: No Symptoms Musculoskeletal: Reports: Joint Pain Skin: Reports: No Symptoms Neurological: Reports: No Symptoms ED EXAM, GENERAL - Physical Exam Exam: See Below Free Text/Narrative:: General Appearance: No acute distress, appears comfortable Skin: No rash HEENT: Normocephalic/atraumatic, sclera anicteric, mucous membranes moist Neck: Normal range of motion Chest and Lungs: Bilateral breath sounds, clear to auscultation Cardiovascular: Regular rate and rhythm, no murmur Abdomen: Soft, non-tender Back: Normal Musculoskeletal: Some tenderness over the left greater trochanter of the hip there is a very subtle non-erythematous fatty feeling superficial swelling just distal to this seems most consistent with lipoma there is no sign of abscess no overlying cellulitis. Passive range of motion of the hip is normal strength is 5 out of 5 in abduction abduction flexion and extension the left foot is neurovascularly intact with 2+ DP pulse. Neurologic: Awake, alert, no obvious deficits, moving all extremities Psychiatric: Appropriate, cooperative Course - Vital Signs Last Recorded V/S: Last Vital Signs Temp 96.8 F L 09/30/19 12:06 Pulse 65 09/30/19 12:06 Resp 18 09/30/19 12:06 BP 103/52 L 09/30/19 12:06 Pulse Ox 100 09/30/19 12:06 Departure - Departure Time of Disposition: 13:00 Disposition: Home, Self-Care 01 Condition: Good Clinical Impression: Hip pain - Discharge Information *PRESCRIPTION DRUG MONITORING PROGRAM REVIEWED*: Not Applicable *COPY OF PRESCRIPTION DRUG MONITORING REPORT IN PATIENT MOISES: Not Applicable Instructions: Hip Pain Referrals: Nelida Garcia NP [Primary Care Provider] - Forms: ED Department Discharge Additional Instructions: Please note that the prescription bottle you were given today has 30 tablets in it. Though this would be enough for 10 days of medication I recommend that you only take 1 tablet 3 times daily with food for 5 days. The following information is given to patients seen in the emergency department who are being discharged to home. This information is to outline your options for follow-up care. We provide all patients seen in our emergency department with a follow-up referral. The need for follow-up, as well as the timing and circumstances, are variable depending upon the specifics of your emergency department visit. If you don't have a primary care physician on staff, we will provide you with a referral. We always advise you to contact your personal physician following an emergency department visit to inform them of the circumstance of the visit and for follow-up with them and/or the need for any referrals to a consulting specialist. The emergency department will also refer you to a specialist when appropriate. This referral assures that you have the opportunity for follow-up care with a specialist. All of these measure are taken in an effort to provide you with optimal care, which includes your follow-up. Under all circumstances we always encourage you to contact your private physician who remains a resource for coordinating your care. When calling for follow-up care, please make the office aware that this follow-up is from your recent emergency room visit. If for any reason you are refused follow-up, please contact the [facility] Emergency Department at and asked to speak to the emergency department charge nurse. Sepsis Event Note (ED) - Evaluation Sepsis Screening Result: No Definite Risk - Focused Exam Vital Signs: Vital Signs Temp Pulse Resp BP Pulse Ox 09/30/19 12:06 96.8 F L 65 18 103/52 L 100 - Assessment/Plan Assessment:: 39-year-old female presenting with 1 year of left hip pain. Given the remote prior fracture as well as the chronicity and the need to preliminarily exclude sarcoma x-ray is been ordered. If this is unremarkable recommend discharge home with scheduled ibuprofen for 4 days and follow-up with her primary care provider for consideration for MRI. Given the severity and persistence of her symptoms MRI to exclude more complex soft tissue injury is likely reasonable. No signs of septic arthritis the joint is stable low concern for acute fracture or dislocation lumbar radiculopathy considered but given the focal tenderness I think this is less likely. Strength is good sensation is good no concern for cord compression or cauda equina. 1300: Patient's x-ray is normal. We discussed this. Patient will do scheduled ibuprofen 3 times daily with food for 5 days and will follow-up with her primary care doctor.
--- NOTE | 2019-09-30 12:51 | CR ---
Pelvis and left hip: AP view of the pelvis was obtained as well as AP and frog-leg lateral views of the left hip. Comparison: No previous study. Joint spaces within both hips are maintained. Sacroiliac joints appear within normal limits. No discrete fracture or other abnormality is appreciated. Impression: 1. No bony abnormality is appreciated an AP pelvis or on 2 view left hip exam. Diagnostic code #1 This report was dictated in MDT
== END 2019-09-30 13:15 | disposition home or self-care (01) ==
LOC: MW.ED 11:36
DX: M25.552 Pain in left hip (principal)
CPT/HCPCS: 73502-26-LT; 73502-LT; 99283-25

== ENCOUNTER 2019-10-13 18:45 | Emergency (ER) | payer MEDICAID ==
--- NOTE | 2019-10-13 19:18 | EDM.PDOC ---
ED HPI GENERAL MEDICAL PROBLEM - General Chief Complaint: General Stated Complaint: CHEST PAIN/HEADACHE Time Seen by Provider: 10/13/19 19:09 - History of Present Illness INITIAL COMMENTS - FREE TEXT/NARRATIVE: History of present illness: The patient has a history of migraines. She has been taking Tylenol. Her doctor prescribed her if then. Today after she took Tylenol for a headache with pressure in the left facial area that is typical for her migraines, she took the sumatriptan. She went to sleep and woke up with a splitting headache. She has tightness in her anterior neck that goes down to her chest. It is associated with diaphoresis shortness of breath. There is no nausea and was no nausea from the headache preceding the administration of the sumatriptan. [] Review of systems: As per history of present illness and below otherwise all systems reviewed and negative. Past medical history: As per history of present illness and as reviewed below otherwise noncontributory. Surgical history: As per history of present illness and as reviewed below otherwise noncontributory. Social history: No reported history of drug or alcohol abuse. Family history: As per history of present illness and as reviewed below otherwise noncontributory. Physical exam: Constitutional - well developed, well-nourished and in no acute distress HEENT - normocephalic, no evidence of trauma - external nose and mouth normal - no mass in neck and no JVD - mucosae moist EYES - full EOM, PERRL, no icterus - no evidence of inflammation, injection, or drainage Respiratory - no respiratory distress, equal bilateral expansion, lungs clear to auscultation and no abnormal lung sounds Cardiovascular - Regular Rhythm with S1 and S2 appreciated and no murmur, gallop or rub. Peripheral pulses symmetrically normal in all four extremities GI - abdomen soft without distension or organomegaly - normal bowel sounds - no guard or rebound Musculoskeletal no gross deformity of long bones or joints - no tenderness, swelling or edema Neurologic - Alert and oriented times four - CN II-XII grossly intact - motor sensory and coordination symmetrically normal Psychiatric - appropriate mood and affect with normal thought content Hematologic - No petechiae or purpura - mucosa appropriate color and sclera not pale - normal nail bed color and refill Integument - no rash or evidence of trauma - normal turgor Diagnostics: [] Therapeutics: [] Impression: [] Plan: [] Definitive disposition and diagnosis as appropriate pending reevaluation and review of above. generalized Pain Score (Numeric/FACES): 6 - Related Data Allergies Allergy/AdvReac Type Severity Reaction Status Date / Time No Known Allergies Allergy Verified 10/13/19 19:06 Home Meds: Home Meds . 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 History: uterine biopsy Musculoskeletal History: Reports: Arthritis, Back Pain, Chronic Neurological History: Reports: Concussion, Migraines Other Neuro History: states migraines if no caffeine Psychiatric History: Reports: Anxiety Endocrine/Metabolic History: Reports: None Hematologic History: Reports: Blood Transfusion(s), Iron Deficiency Immunologic History: Reports: None Oncologic (Cancer) History: Reports: None Dermatologic History: Reports: None - Infectious Disease History Infectious Disease History: Reports: Chicken Pox - Past Surgical History Head Surgeries/Procedures: Reports: None HEENT Surgical History: Reports: None Cardiovascular Surgical History: Reports: None Respiratory Surgical History: Reports: None GI Surgical History: Reports: Cholecystectomy, EGD Female Surgical History: Reports: Section, Tubal Ligation Endocrine Surgical History: Reports: None Neurological Surgical History: Reports: None Musculoskeletal Surgical History: Reports: None Oncologic Surgical History: Reports: None Dermatological Surgical History: Reports: None Social & Family History - Family History Family Medical History: Noncontributory - Tobacco Use Smoking Status *Q: Current Every Day Smoker Years of Tobacco use: 20 Packs/Tins Daily: 1 - Caffeine Use Caffeine Use: Reports: Tea - Recreational Drug Use Recreational Drug Use: No ED ROS GENERAL - Review of Systems Review Of Systems: Comprehensive ROS is negative, except as noted in HPI. ED EXAM, GENERAL - Physical Exam Exam: See Below Free Text/Narrative:: Exam is in the HPI EKG INTERPRETATION EKG Date: 10/13/19 Rhythm: NSR Rate (Beats/Min): 61 [place]: Normal P-Wave: Present EKG Interpretation Comments: Normal EKG Course - Vital Signs Last Recorded V/S: Last Vital Signs Temp 97.2 F 10/13/19 20:33 Pulse 64 10/13/19 20:33 Resp 18 10/13/19 20:33 BP 105/56 L 10/13/19 20:33 Pulse Ox 98 10/13/19 20:33 - Orders/Labs/Meds Orders: Active Orders 24 hr Category Date Time Status EKG 12 Lead [EKG Documentation Completion] [RC] STAT Care 10/13/19 19:20 Active Sodium Chloride 0.9% [Saline Flush] Med 10/13/19 19:24 Active 10 ml FLUSH ASDIRECTED PRN Sodium Chloride 0.9% [Saline Flush] Med 10/13/19 19:24 Active 2.5 ml FLUSH ASDIRECTED PRN Saline Lock Insert [OM.PC] Stat Oth 10/13/19 19:24 Ordered Medication Orders Sodium Chloride (Saline Flush) 10 ml FLUSH ASDIRECTED PRN PRN Reason: Keep Vein Open Sodium Chloride (Saline Flush) 2.5 ml FLUSH ASDIRECTED PRN PRN Reason: Keep Vein Open Labs: Laboratory Tests 10/13/19 10/13/19 10/13/19 Range/Units 19:35 19:35 19:40 WBC 9.23 (4.0-11.0) K/uL RBC 4.54 (4.30-5.90) M/uL Hgb 10.8 L (12.0-16.0) g/dL Hct 35.2 L (36.0-46.0) % MCV 77.5 L (80.0-98.0) fL MCH 23.8 L (27.0-32.0) pg MCHC 30.7 L (31.0-37.0) g/dL RDW Std Deviation 53.7 (28.0-62.0) fl RDW Coeff of Huyen 19 H (11.0-15.0) % Plt Count 313 (150-400) K/uL MPV 9.40 (7.40-12.00) fL Neut % (Auto) 65.4 (48.0-80.0) % Lymph % (Auto) 23.8 (16.0-40.0) % [place] % (Auto) 8.6 (0.0-15.0) % Eos % (Auto) 2.0 (0.0-7.0) % Baso % (Auto) 0.2 (0.0-1.5) % Neut # (Auto) 6.0 H (1.4-5.7) K/uL Lymph # (Auto) 2.2 (0.6-2.4) K/uL [place] # (Auto) 0.8 (0.0-0.8) K/uL Eos # (Auto) 0.2 (0.0-0.7) K/uL Baso # (Auto) 0.0 (0.0-0.1) K/uL Nucleated RBC % 0.0 /100WBC Nucleated RBCs # 0 K/uL Sodium 141 (136-145) mmol/L Potassium 3.8 (3.5-5.1) mmol/L Chloride 105 (98-107) mmol/L Carbon Dioxide 25.9 (21.0-32.0) mmol/L BUN 8 (7.0-18.0) mg/dL Creatinine 0.6 (0.6-1.0) mg/dL Est Cr Clr Drug Dosing 106.55 mL/min Estimated GFR (MDRD) > 60.0 ml/min Glucose 105 (74-106) mg/dL Calcium 8.9 (8.5-10.1) mg/dL Total Bilirubin 0.2 (0.2-1.0) mg/dL AST 11 L (15-37) IU/L ALT 18 (14-63) IU/L Alkaline Phosphatase 60 (46-116) U/L Troponin I < 0.050 (0.000-0.056) ng/mL Total Protein 7.8 (6.4-8.2) g/dL Albumin 3.8 (3.4-5.0) g/dL Globulin 4.0 (2.6-4.0) g/dL Albumin/Globulin Ratio 0.9 (0.9-1.6) Urine Color YELLOW Urine Appearance CLEAR Urine pH 7.5 (5.0-8.0) Ur Specific Felt 1.015 (1.001-1.035) Urine Protein NEGATIVE (NEGATIVE) mg/dL Urine Glucose (UA) NEGATIVE (NEGATIVE) mg/dL Urine Ketones NEGATIVE (NEGATIVE) mg/dL Urine Occult Blood NEGATIVE (NEGATIVE) Urine Nitrite NEGATIVE (NEGATIVE) Urine Bilirubin NEGATIVE (NEGATIVE) Urine Urobilinogen 0.2 (<2.0) EU/dL Ur Leukocyte Esterase NEGATIVE (NEGATIVE) Urine HCG, Qual (NEGATIVE) 10/13/19 Range/Units 19:40 WBC (4.0-11.0) K/uL RBC (4.30-5.90) M/uL Hgb (12.0-16.0) g/dL Hct (36.0-46.0) % MCV (80.0-98.0) fL MCH (27.0-32.0) pg MCHC (31.0-37.0) g/dL RDW Std Deviation (28.0-62.0) fl RDW Coeff of [place] (11.0-15.0) % Plt Count (150-400) K/uL MPV (7.40-12.00) fL Neut % (Auto) (48.0-80.0) % Lymph % (Auto) (16.0-40.0) % [place] % (Auto) (0.0-15.0) % Eos % (Auto) (0.0-7.0) % Baso % (Auto) (0.0-1.5) % Neut # (Auto) (1.4-5.7) K/uL Lymph # (Auto) (0.6-2.4) K/uL [place] # (Auto) (0.0-0.8) K/uL Eos # (Auto) (0.0-0.7) K/uL Baso # (Auto) (0.0-0.1) K/uL Nucleated RBC % /100WBC Nucleated RBCs # K/uL Sodium (136-145) mmol/L Potassium (3.5-5.1) mmol/L Chloride (98-107) mmol/L Carbon Dioxide (21.0-32.0) mmol/L BUN (7.0-18.0) mg/dL Creatinine (0.6-1.0) mg/dL Est Cr Clr Drug Dosing mL/min Estimated GFR (MDRD) ml/min Glucose (74-106) mg/dL Calcium (8.5-10.1) mg/dL Total Bilirubin (0.2-1.0) mg/dL AST (15-37) IU/L ALT (14-63) IU/L Alkaline Phosphatase (46-116) U/L Troponin I (0.000-0.056) ng/mL Total Protein (6.4-8.2) g/dL Albumin (3.4-5.0) g/dL Globulin (2.6-4.0) g/dL Albumin/Globulin Ratio (0.9-1.6) Urine Color Urine Appearance Urine pH (5.0-8.0) Ur Specific Felt (1.001-1.035) Urine Protein (NEGATIVE) mg/dL Urine Glucose (UA) (NEGATIVE) mg/dL Urine Ketones (NEGATIVE) mg/dL Urine Occult Blood (NEGATIVE) Urine Nitrite (NEGATIVE) Urine Bilirubin (NEGATIVE) Urine Urobilinogen (<2.0) EU/dL Ur Leukocyte Esterase (NEGATIVE) Urine HCG, Qual NEGATIVE (NEGATIVE) Meds: Medications Generic Name Dose Route Start Last Admin Trade Name Freq PRN Reason Stop Dose Admin Sodium Chloride 10 ml 10/13/19 19:24 Saline Flush FLUSH ASDIRECTED PRN Keep Vein Open Sodium Chloride 2.5 ml 10/13/19 19:24 Saline Flush FLUSH ASDIRECTED PRN Keep Vein Open Discontinued Medications Generic Name Dose Route Start Last Admin Trade Name Freq PRN Reason Stop Dose Admin Sodium Chloride 1,000 mls @ 999 mls/hr 10/13/19 19:40 10/13/19 19:45 Normal Saline IV 10/13/19 20:40 999 mls/hr NOW STA Administration Ketorolac Tromethamine 30 mg 10/13/19 19:28 10/13/19 19:46 Toradol IVPUSH 10/13/19 19:29 30 mg ONETIME ONE Administration Metoclopramide HCl 10 mg 10/13/19 19:28 10/13/19 19:46 Reglan IVPUSH 10/13/19 19:29 10 mg ONETIME ONE Administration Departure - Departure Time of Disposition: 20:46 Disposition: Home, Self-Care 01 Condition: Good Clinical Impression: Migraine - Discharge Information Instructions: Recurrent Migraine Headache, [id number] Referrals: Edmar Bravo MD [Primary Care Provider] - Forms: ED Department Discharge Additional Instructions: The following information is given to patients seen in the emergency department who are being discharged to home. This information is to outline your options for follow-up care. We provide all patients seen in our emergency department with a follow-up referral. The need for follow-up, as well as the timing and circumstances, are variable depending upon the specifics of your emergency department visit. If you don't have a primary care physician on staff, we will provide you with a referral. We always advise you to contact your personal physician following an emergency department visit to inform them of the circumstance of the visit and for follow-up with them and/or the need for any referrals to a consulting specialist. The emergency department will also refer you to a specialist when appropriate. This referral assures that you have the opportunity for follow-up care with a specialist. All of these measure are taken in an effort to provide you with optimal care, which includes your follow-up. Under all circumstances we always encourage you to contact your private physician who remains a resource for coordinating your care. When calling for follow-up care, please make the office aware that this follow-up is from your recent emergency room visit. If for any reason you are refused follow-up, please contact the [facility] Emergency Department at and asked to speak to the emergency department charge nurse. [facility] [address], [address] [place] [address] Do not take the migraine medicine again until your doctor advises. Remember to use caffeine as part of your regimen. Sepsis Event Note (ED) - Evaluation Sepsis Screening Result: No Definite Risk - Focused Exam Vital Signs: Vital Signs Temp Pulse Resp BP Pulse Ox 10/13/19 20:33 97.2 F 64 18 105/56 L 98 10/13/19 19:47 62 108/53 L 10/13/19 19:03 97 F 72 18 116/38 L 97 - My Orders Last 24 Hours: My Active Orders 10/13/19 19:20 EKG 12 Lead [EKG Documentation Completion] [RC] STAT 10/13/19 19:24 Sodium Chloride 0.9% [Saline Flush] 10 ml FLUSH ASDIRECTED PRN Sodium Chloride 0.9% [Saline Flush] 2.5 ml FLUSH ASDIRECTED PRN Saline Lock Insert [OM.PC] Stat - Assessment/Plan Last 24 Hours: My Active Orders 10/13/19 19:20 EKG 12 Lead [EKG Documentation Completion] [RC] STAT 10/13/19 19:24 Sodium Chloride 0.9% [Saline Flush] 10 ml FLUSH ASDIRECTED PRN Sodium Chloride 0.9% [Saline Flush] 2.5 ml FLUSH ASDIRECTED PRN Saline Lock Insert [OM.PC] Stat
[2019-10-13] MEDS ORDERED: Sodium Chloride 0.9% 10 ML Syringe FLUSH PRN (19:24)
[2019-10-13] MEDS ORDERED: Sodium Chloride 0.9% 2.5 ML Syringe FLUSH PRN (19:24)
[2019-10-13] MEDS ORDERED: Metoclopramide 10 MG/2 ML SDV IVPUSH ONE (19:28)
[2019-10-13] MEDS ORDERED: Ketorolac 30 MG/ML SDV IVPUSH ONE (19:28)
[2019-10-13] MEDS ORDERED: Sodium Chloride 0.9% 1,000 ML IV SCH (19:30)
[2019-10-13] MEDS ORDERED: Sodium Chloride 0.9% 1,000 ML IV STA (19:40)
[2019-10-13 20:06] LABS: BLOOD UREA NITROGEN,BUN 8 mg/dL (7.0-18.0); CARBON DIOXIDE,CO2 25.9 mmol/L (21.0-32.0); CHLORIDE,CL 105 mmol/L (98-107); POTASSIUM,K 3.8 mmol/L (3.5-5.1); SODIUM,NA 141 mmol/L (136-145)
[2019-10-13 20:20] LABS: GLUCOSE RANDOM 105 mg/dL (74-106)
== END 2019-10-13 21:00 | disposition home or self-care (01) ==
LOC: MW.ED 18:45
DX: G43.909 Migraine, unspecified, not intractable, without status migrainosus (principal); F17.210 Nicotine dependence, cigarettes, uncomplicated; J45.909 Unspecified asthma, uncomplicated
CPT/HCPCS: 36415; 80053; 81003; 81025; 84484; 85025; 93005; 96374; 96375; 99284; J1885; J2765; J7030; 99283